=== PATIENT | male | born 1950 | race Caucasian/White ===

== ENCOUNTER 2019-04-06 09:36 | Inpatient (IN) ==
[2019-04-06] MEDS ORDERED: SODIUM CHLORIDE 0.9% 1000ML 1,000 ML IV SCH (10:00)
[2019-04-06 10:24] LABS: Basophils # (auto) 0.02 K/uL (0-0.2); Basophils % (auto) 0.1 %; Eosinophils # (auto) 0.01 K/uL (0-0.5); Eosinophils % (auto) 0.1 %; Hematocrit (blood only) 35.5 % (42-52); Hemoglobin 11.1 g/dL (14.0-18.0); Immature Granulocytes # (auto) 0.06 K/uL (0.00-0.02); Immature Granulocytes % (auto) 0.4 %; Lymphocytes # (auto) 1.03 K/uL (1.2-3.4); Lymphocytes % (auto) 6.3 %; Mean Corpuscular Hemoglobin 25.5 pg (25-34); Mean Corpuscular Hgb Conc 31.3 g/dL (32-36); Mean Corpuscular Volume 81.4 fL (80-100); Mean Platelet Volume 8.5 fL (7.4-10.4); Monocytes # (auto) 1.16 K/uL (0.11-0.59); Monocytes % (auto) 7.1 %; Neutrophils # (auto) 14.01 K/uL (1.4-6.5); Platelet Count 313 K/uL (130-400); RDW Coefficient of Variation 16.3 % (11.5-14.5); RDW Standard Deviation 47.8 fL (36.4-46.3); Red Blood Count 4.36 M/uL (4.7-6.1); White Blood Count 16.29 K/uL (4.8-10.8)
[2019-04-06 10:33] LABS: Partial Thromboplastin Ratio 1.1; Partial Thromboplastin Time 29.8 Seconds (21.0-31.0); Prothrombin Time 10.6 Seconds (9.0-12.0)
[2019-04-06 10:46] LABS: Albumin Level 2.3 gm/dl (3.4-5.0); BUN Creatinine Ratio 20.2 (10-20); Calcium 8.5 mg/dl (8.5-10.1); Est GFR (Non-African American) 62.2; Potassium 4.5 mmol/L (3.5-5.1)
[2019-04-06 10:49] LABS: Albumin Globulin Ratio 0.4 (0.9-2); Bilirubin,Total 0.7 mg/dl (0.2-1); Globulin 6.2 gm/dl (2.5-4.0); Total Protein 8.5 gm/dl (6.4-8.2)
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
[2019-04-06] MEDS ORDERED: ONDANSETRON INJ 2 MG/ML 2 ML VIAL IV STA (11:21)
[2019-04-06] MEDS ORDERED: MoRPHine SULFATE 4 MG/ML 1 ML CARP\\VIAL IV STA (11:21)
--- NOTE | 2019-04-06 11:22 | CT Scan Report ---
CT femur LT wo con CT DOSE: 1438.97 mGy.cm CLINICAL HISTORY: Left thigh swelling. TECHNIQUE: Helical images were acquired in the transverse plane. Sagittal and coronal reformatted aakash ges were acquired. A dose lowering technique was utilized adhering to the principles of ALARA. COMPARISON STUDY: None. FINDINGS: There is an old fracture deformity of the left iliac bone. There is a left hip joint effusion. Osteoarthritic changes are present within the left hip. There are small foci of heterotopic ossification. There are no acute fractures. No bony destructive changes ar e visualized. There is diffuse soft tissue edema of the thigh. There is an old fracture deformity of the distal femur with intercondylar extension. 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 There is chron ic periostitis involving the fracture fragment and distal femoral shaft likely secondary to nonunion. There is extensive heterotopic ossification within the lateral soft tissues of the distal thigh. IMPRESSION: 1. Old fracture deformity of the iliac bone 2. Arthritic changes in the left hip. Left hip joint effusion 3. 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 4. Areas of heterotopic ossification within the distal thigh. 5. Diffuse subcutaneous edema of the left thigh most pronounced laterally Electronically signed by: Kwasi Alfaro M.D. 04/06/2019 11:21 AM
--- NOTE | 2019-04-06 11:27 | CT Scan Report ---
CT abd pelvis wo con CT DOSE: HISTORY: Flank pain right flank pain TECHNIQUE: Multiaxial CT images of the abdomen and pelvis were performed without contrast. A dose lo wering technique was utilized adhering to the principles of ALARA. COMPARISON STUDY: None. FINDINGS: Minimal dependent basilar atelectasis. Liver spleen and pancreas appear uniform. Left kidne y and shows no evidence for hydronephrosis or nephrocalcinosis. Right kidney is enlarged and contains several cysts. An upper pole right renal cyst measures 9 cm. Th ere is a peripherally calcified 2 cm nodules/cysts midpole right kidney. The substance of the mid and lower aspect of the right kidney appears lobular and somewhat enlarged. There is a 6 cm exophytic lower pole cyst. There is a lower pole cyst possibly with a thickened wall measuring 3 cm. There is mild degree of perinephric fat stranding as well as periureteral fat stranding. Significance is unclear pelvis potentially relates to either repeat a recently passed calculus versus an inflamma tory process of the right urinary tract. The configuration of the right kidney is atypical and warrants multiphasic CT evaluation. There are several small gallstones in the region of the fundal aspect of the gallbladder. Abdominal aorta shows atherosclerotic change and ectasia. Evaluation of the bony structures demonstra kiko an old healed fracture versus bony exostosis anterior aspect left iliac wing extending to the ant erior superior acetabular margin. Similar but less prominent findings are identified on the right. There is to be a small left hip joint effusion. There is a minimal right hip joint effusion. IMPRESSION: 1. Multicystic right kidney with evidence for cortical lobulation and internal substance heterogeneit y primarily of the mid and lower pole. 2. A multiphasic CT evaluation of the kidneys and abdomen is suggested to exclude a significant space -occupying lesion. 3. Periureteral infiltrative change suggesting the possibility of either recently passed calculus alvaro morro an inflammatory process of the urinary tract. 4. Several gallstones. 5. Degenerative changes in the hips bilaterally with evidence for left and to a lesser extent right h ip joint effusions possibly a degenerative basis The above report was generated using voice recognition software. It may contain grammatical, syntax or spelling errors. Electronically signed by: Tone Rachel M.D. 04/06/2019 11:26 AM
[2019-04-06 11:59] LABS: Appearance Urine Cloudy (Clear); Bacteria Urine Automated Negative (Negative); Bilirubin Urine Negative (Negative); Blood Urine Trace (Negative); Color Urine Dark Yellow; Epithelial Cell Urine Auto >30 /lpf (0-5); Glucose Urine UA Negative (Negative); Ketones Urine 1+ (Negative); Leukocyte Esterase Urine 2+ (Negative); Nitrite Urine Negative (Negative); Protein Urine 1+ (Negative); RBC Urine Automated 0-4 /hpf (0-4); Specific Gravity Urine 1.019 (1.000-1.030); Urobilinogen Urine Negative (Negative); WBC Urine Automated >30 /hpf (0-5)
[2019-04-06] MEDS ORDERED: cefTRIAXone SODIUM 2,000 MG/70 ML BAG IV STA (12:22)
[2019-04-06] MEDS ORDERED: ONDANSETRON INJ 2 MG/ML 2 ML VIAL IV PRN (14:30)
[2019-04-06] MEDS ORDERED: MAGNESIUM HYDROXIDE SUSP 30 ML UDC PO PRN (14:30)
[2019-04-06] MEDS ORDERED: POLYETHYLENE (MIRALAX) 17 GM PACK PO PRN (14:30)
[2019-04-06] MEDS ORDERED: ZOLPIDEM TARTRATE 5 MG TAB PO PRN (14:30)
[2019-04-06] MEDS ORDERED: MoRPHine SULFATE 2 MG/ML CARP IV PRN (14:30)
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
[2019-04-06] MEDS: SODIUM CHLORIDE 0.9% 1000ML 1,000 ML IV SCH (18:36)
[2019-04-07] MEDS: OXYCODONE/ACETAMINOPHEN 5mg/325mg TAB PO PRN ×2 (07:50→21:34)
[2019-04-07] MEDS: LACTOBACILLUS ACIDOPHILUS (FLORANEX) TAB PO SCH (07:50)
[2019-04-07] MEDS: ASCORBIC ACID 500 MG TAB PO SCH (07:50)
[2019-04-07] MEDS ORDERED: LACTATED RINGER'S 1,000 ML IV ONE (08:22)
[2019-04-07 08:36] LABS: Basophils # (auto) 0.03 K/uL (0-0.2); Basophils % (auto) 0.2 %; Eosinophils # (auto) 0.08 K/uL (0-0.5); Eosinophils % (auto) 0.6 %; Hematocrit (blood only) 33.9 % (42-52); Hemoglobin 10.6 g/dL (14.0-18.0); Immature Granulocytes # (auto) 0.07 K/uL (0.00-0.02); Immature Granulocytes % (auto) 0.6 %; Lymphocytes # (auto) 0.84 K/uL (1.2-3.4); Lymphocytes % (auto) 6.8 %; Mean Corpuscular Hemoglobin 25.5 pg (25-34); Mean Corpuscular Hgb Conc 31.3 g/dL (32-36); Mean Corpuscular Volume 81.7 fL (80-100); Mean Platelet Volume 8.8 fL (7.4-10.4); Monocytes # (auto) 1.27 K/uL (0.11-0.59); Monocytes % (auto) 10.2 %; Neutrophils # (auto) 10.12 K/uL (1.4-6.5); Neutrophils % (auto) 81.6 %; Platelet Count 277 K/uL (130-400); RDW Coefficient of Variation 16.9 % (11.5-14.5); RDW Standard Deviation 49.6 fL (36.4-46.3); Red Blood Count 4.15 M/uL (4.7-6.1); White Blood Count 12.41 K/uL (4.8-10.8)
[2019-04-07] MEDS ORDERED: CYANOCOBALAMIN COBAMAMIDE SL SCH (09:00)
[2019-04-07 09:02] LABS: BUN Creatinine Ratio 19.8 (10-20); Creatinine Clr Calc Pharmacy 69.5 ml/min; Est GFR (African American) 69.9; Est GFR (Non-African American) 60.3; Magnesium 1.9 mg/dl (1.8-2.4); Potassium 4.1 mmol/L (3.5-5.1)
[2019-04-07 09:05] LABS: Albumin Globulin Ratio 0.4 (0.9-2); Bilirubin,Total 0.7 mg/dl (0.2-1); Globulin 5.5 gm/dl (2.5-4.0); Total Protein 7.5 gm/dl (6.4-8.2)
[2019-04-07] MEDS ORDERED: DiphenhydrAMINE HCL 50 MG/ML VIAL IV STA (10:35)
[2019-04-07] MEDS: SODIUM CHLORIDE 0.9% 1000ML 1,000 ML IV SCH (10:35)
[2019-04-07] MEDS ORDERED: ONDANSETRON INJ 2 MG/ML 2 ML VIAL IV STA (10:35)
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
[2019-04-07] MEDS ORDERED: IOVERSOL 100ml IV PRN (12:07)
--- NOTE | 2019-04-07 12:46 | CT Scan Report ---
CT OF THE ABDOMEN AND PELVIS WITH AND WITHOUT CONTRAST RENAL MASS PROTOCOL CLINICAL HISTORY: Possible right renal mass. COMPARISON STUDY: None. TECHNIQUE: Unenhanced, nephrographic and delayed phase imaging of the abdomen and pelvis was performe d. Intravenous injection of 95 cc of Optiray 320 IV was uneventful. Automated exposure control was u tilized for the study. A dose lowering technique was utilized adhering to the principles of ALARA. CT DOSE: 2234.26 mGycm FINDINGS: Imaged portions of the lower lungs demonstrate possible pulmonary emboli within segmental b ranches of the right lower lobe. No hepatic lesions are present. The spleen, left adrenal gland and p ancreas are unremarkable. A 1.6 cm right adrenal nodule measures low attenuation. This favors an colin ileana although is indeterminate. There are gallstones within the gallbladder without evidence for acute cholecystitis. Note is made of an infiltrative enhancing mass replacing the mid pole of the right kidney. This measu res approximately 9.7 x 8.2 cm. There is extensive invasion into the renal veins and inferior vena ca va. IVC thrombus extends to the level of the hepatic veins superiorly and likely extends into the inf rarenal IVC as well. No extension above the diaphragm is noted. In addition, there is thrombus extens ion into the mid to distal left renal vein. Mild left renal atrophy is noted. Numerous right renal cy sts are noted. Several these have calcifications. There is moderate right perinephric infiltration. A borderline enlarged maninder hepatis lymph node on image 127 measures 1.1 cm in short axis diameter. Ri ght-sided urothelial thickening is noted. Note is made of bilobed infrarenal abdominal aortic aneurysm that measure up to 3.4 cm. There is no e vidence for rupture. There is no evidence for a bowel obstruction. Rodriguez balloon is present within th e bladder which is collapsed. Muscular atrophy is noted. Old traumatic deformity is within the pelvis and hips are noted. There is avascular necrosis of the left femoral head. Pelvic infiltration is not ed. No suspicious renal lesions are present. Possible thrombus within the bilateral femoral veins is noted. Borderline enlarged left inguinal lymph nodes are likely reactive. IMPRESSION: 1. Large infiltrative mass replacing the midpole of the right kidney, measuring approximately 9.7 x 8 .2 cm. Extensive venous invasion into the right renal vein, mid to distal left renal vein and IVC to the level of the hepatic veins. Possible pulmonary emboli within the right lower lobe. A PE protocol CT could be obtained. Venous invasion favors a renal cell carcinoma however a transitional cell carci noma could appear similar given the infiltrative appearance and urothelial thickening. 2. Right perinephric infiltration extending into the pelvis, likely due to venous involvement. Border line-enlarged maninder hepatis lymph node. 1.6 cm low-attenuation right adrenal nodule which is indeterm inate but favors an adenoma. 3. Bilobed infrarenal abdominal aortic aneurysm measuring 3.4 cm. 4. Thrombus versus mixing artifact within the bilateral femoral veins. Bilateral lower extremity veno us Doppler ultrasound is recommended. 5. Old posttraumatic findings. Avascular necrosis of the left femoral head. 6. Cholelithiasis. Electronically signed by: Anjum De Luna M.D. 04/07/2019 12:44 PM
[2019-04-07] MEDS ORDERED: cefTRIAXone SODIUM 2,000 MG in DEXTROSE 5% 50 ML IV SCH (13:00)
--- NOTE | 2019-04-07 16:44 | Hospitalist Progress Note ---
Date of Service April 07, 2019 Assessment & Plan (1) Acute pyelonephritis: Unclear diagnosis since right flank pain resolved from what sounds like passing a stone however no other renal stones on CT CT concerning for periureteral infiltrative change ?infective. Associated WBC would suggest infection related. Gram negative bacilli on urine culture likely colonized. No perinephric stranding on CTs. Will treat with ceftriaxone for at least 7 days given difficult to assess pyelonephritis given renal mass involvement. (2) Bilateral lower extremity edema: Ultrasound venous Doppler for DVT given concern for pulmonary embolism on CT abdomen pelvis and a possible thrombus in bilateral femoral veins. Will defer CT for PE to reduce risk of contrast-induced nephropathy. (3) Renal mass: Patient reports prior history of right renal cyst however current CT abdomen pelvis with and without contrast is very concerning for renal cell carcinoma. Will attempt to obtain prior imaging from [facility] or [facility] for comparison Appreciate urology recommendations (4) Elevated LFTs: Unclear definitive etiology. Elevation in AST fits with alcohol use although he denies this. Concerning CT scan for hepatic congestion given thrombus and vein infiltration of renal mass. Continue to trend. (5) Paraplegia: Continue supportive and conservative management (6) Decubitus ulcer, stage IV: 3 decubitus ulcer ranging from stage II-IV and his lower back and sacral area Multiple large decubitus ulcers also stage III-IV in both feet and calf muscle No surrounding cellulitis. Gram negative bacilli on all cultures. Local wound management only required. 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 No acute management. Careful movement of limbs. Subjective Patient appears much improved since admission. Revisited history with patient and his . He reports sudden onset nausea, vomiting and right flank pain which started on . Pain severity 10/10, unable to get comfortable. He reports the pain was much improved by the time he came to the ER. He has been eating and drinking today without nausea or vomiting. Denies any fever. Uses continuous intermittent catheterization due to neurogenic bladder but reports no change in his urine. Review of Systems Review of Systems: All systems reviewed & are unremarkable except as noted in HPI & below Physical Exam Constitutional: WD/WN, vitals as above Eyes: normal visual angel by confrontation; normal pupil size ENMT: external ear and nose normal, oropharynx normal Respiratory: normal respiratory effort, lungs clear to auscultation Cardiovascular: Rate/Rhythm: regular rate and regular rhythm Heart Sounds: normal S1 and normal S2; no murmur Extremities: + edema (2+ b/l) Gastrointestinal (Abdomen): normal bowel sounds, soft, nontender, no hepatosplenomegaly Skin: Multiple wounds on right foot, sacrum, left knee and left leg without surrounding cellulitis Neurologic: + focal motor deficit (paralyzed from waist down with no sensation or movement) and awake Psychiatric: A+Ox3, euthymic affect Results & Data Vital Signs (Past 12 Hours) Vital Signs Temp Pulse Resp BP Pulse Ox 04/07/19 15:43 97.7 F 74 18 94/57 L 95 04/07/19 10:48 97.7 F 80 19 99/64 L 96 04/07/19 07:12 97.9 F 99 H 19 93/63 L 98 PG Care Time/CCT Total # of Minutes Spent Total Time Spent with Patient: Total time spent is greater than 50% in coordination of care (as documented) at patient's floor/unit and/or counseling patient:
--- NOTE | 2019-04-07 19:10 | Ultrasound Report ---
BILATERAL LOWER EXTREMITY VENOUS DOPPLER HISTORY: Abnormal CT. Possible femoral vein thrombosis. COMPARISON STUDY: Abdomen and pelvis CT 04/07/2019. FINDINGS: There is occlusive thrombus within the right common femoral vein extending to the mid popli teal vein. There is also nonocclusive thrombus within the left common femoral vein to the proximal le ft superficial femoral vein. The right calf veins are patent. The left calf veins are also likely pat ent. Left popliteal vein is patent. IMPRESSION: Bilateral lower extremity DVT as described above. Electronically signed by: Jose Faustin M.D. 04/07/2019 7:09 PM
[2019-04-07] MEDS: ENOXAPARIN 100 MG/1ML SYR SQ SCH (20:29)
[2019-04-08] MEDS: SODIUM CHLORIDE 0.9% 1000ML 1,000 ML IV SCH (02:30)
[2019-04-08] MEDS ORDERED: LACTATED RINGER'S 1,000 ML IV ONE (07:34)
[2019-04-08] MEDS: ENOXAPARIN 100 MG/1ML SYR SQ SCH ×2 (08:07→19:48)
[2019-04-08] MEDS: ASCORBIC ACID 500 MG TAB PO SCH (08:07)
[2019-04-08] MEDS: LACTOBACILLUS ACIDOPHILUS (FLORANEX) TAB PO SCH (08:07)
[2019-04-08] MEDS: OXYCODONE/ACETAMINOPHEN 5mg/325mg TAB PO PRN ×2 (08:08→21:26)
[2019-04-08 08:11] LABS: Basophils # (auto) 0.04 K/uL (0-0.2); Basophils % (auto) 0.3 %; Eosinophils # (auto) 0.12 K/uL (0-0.5); Eosinophils % (auto) 0.8 %; Hematocrit (blood only) 33.6 % (42-52); Hemoglobin 10.3 g/dL (14.0-18.0); Immature Granulocytes # (auto) 0.08 K/uL (0.00-0.02); Immature Granulocytes % (auto) 0.5 %; Lymphocytes # (auto) 1.06 K/uL (1.2-3.4); Lymphocytes % (auto) 7.1 %; Mean Corpuscular Hemoglobin 25.6 pg (25-34); Mean Corpuscular Hgb Conc 30.7 g/dL (32-36); Mean Corpuscular Volume 83.6 fL (80-100); Mean Platelet Volume 8.6 fL (7.4-10.4); Monocytes # (auto) 1.48 K/uL (0.11-0.59); Monocytes % (auto) 9.9 %; Neutrophils # (auto) 12.22 K/uL (1.4-6.5); Neutrophils % (auto) 81.4 %; Platelet Count 269 K/uL (130-400); RDW Coefficient of Variation 16.9 % (11.5-14.5); RDW Standard Deviation 51.2 fL (36.4-46.3); Red Blood Count 4.02 M/uL (4.7-6.1)
[2019-04-08 08:45] LABS: Albumin Level 1.8 gm/dl (3.4-5.0); BUN Creatinine Ratio 22.6 (10-20); Calcium 7.7 mg/dl (8.5-10.1); Creatinine Clr Calc Pharmacy 68.4 ml/min; Est GFR (African American) 68.5; Est GFR (Non-African American) 59.1; Potassium 4.1 mmol/L (3.5-5.1)
[2019-04-08 08:48] LABS: Albumin Globulin Ratio 0.3 (0.9-2); Bilirubin,Total 0.6 mg/dl (0.2-1); Globulin 5.3 gm/dl (2.5-4.0); Total Protein 7.1 gm/dl (6.4-8.2)
[2019-04-08] MEDS ORDERED: OPTIRAY 320 125ml IV PRN (10:51)
--- NOTE | 2019-04-08 11:08 | CT Scan Report ---
CT angio chest PE protocol CLINICAL HISTORY: 68 years-old Male presenting with RCC, evaluate for metastasis, extensive DVT, conc urvashi for pulmonary embolus on CT of the abdomen and pelvis, CT chest for complete evaluation. TECHNIQUE: Multidetector CT angiography of the chest was performed after administration of intravenou s contrast. 3-D volumetric and/or maximum intensity projection (MIP) images were subsequently reconst ructed for review. IV contrast: 120 mL of Optiray 320. One or more dose lowering techniques were used consistent with the principles of ALARA (as low as reasonably achievable), including automatic expos ure control, mA or kV adjustment to individual patient size, and/or use of iterative reconstruction. COMPARISON: Bilateral lower extremity Doppler ultrasound from 04/07/[address] of the abdomen and pel vis from 04/07/2019. CT DOSE (mGy.cm): The estimated cumulative dose is 831.98 mGy.cm. FINDINGS: Management Architect topogram: Unremarkable. Pulmonary vasculature: The study is suboptimal for the assessment of the pulmonary vascular tree secondary to respiratory mo tion artifact. Segmental and subsegmental pulmonary emboli in the right lower lobe. The left lung isatu ears uninvolved. Main pulmonary artery is not enlarged. No flattening of the interventricular septum. No intracardiac filling defect. No reflux of contrast into the hepatic veins. Infrahepatic IVC is ex panded compatible with known thrombus. Intrahepatic portion patent. Remaining chest: Soft tissues: Normal thyroid and thoracic inlet. No axillary, supraclavicular, mediastinal, or hilar lymphadenopathy. Atherosclerosis of the aorta. Multichamber enlargement of the heart. Coronary artery calcification. No pericardial or pleural effusion. Gallstones noted. Right renal cyst. 14 mm right a drenal nodule again noted. Lungs and airways: No pneumothorax. Central airways patent. Pulmonary arteries mildly enlarged relati ve to adjacent bronchi. Prominent mosaic attenuation. Minimal interlobular septal thickening may be p resent. Respiratory motion artifact degrades evaluation of lung parenchyma. Bibasilar dependent gaspar es likely atelectasis. No other superimposed opacity. Musculoskeletal: Degenerative changes of the spine. IMPRESSION: 1. Acute pulmonary emboli in segmental and subsegmental pulmonary arteries of the right lower lobe a s seen on CT of the abdomen and pelvis performed yesterday. No CT evidence of right heart strain. Thi s is bland thrombus. 2. No convincing evidence of intrathoracic metastatic disease allowing for image quality. No lymphad enopathy. 3. Mosaic attenuation suggests small airways disease though can also have a vascular etiology. No fo jamey infiltrate to suggest pneumonia or pulmonary infarct. 4. Expanded infrahepatic IVC compatible with known thrombus. 5. Cardiomegaly with volume overload and mild congestive change. No any pulmonary edema. 6. Right adrenal nodule most likely adenoma. 7. Cholelithiasis. Electronically signed by: Emmanuel Galeano M.D. 04/08/2019 11:05 AM
--- NOTE | 2019-04-08 12:18 | Urology Progress Note ---
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 Typical management reviewed - would be surgical with thrombectomy. Seen the extent of thrombus, tertiary facility would be [facility] (possible need for mobilization of hepatic IVC and / or availability of cardiothoracic services). Patient notes he is typically seen at [facility] and would like to maintain care there - this is nonacute, will arrange for appropriate referral on discharge from his acute issues. Alternate management would be consideration of pre-surgical chemotherapy for tumor shrinkage and subsequent resection - this would be less ideal, but will arrange for at least a discussion to take place with oncology service. With a high risk tumor as seems to be present, the consideration of postop chemotherapy would also be present. Patient vocalizes understanding of discussion, questions answered. Continue management per primary service of other active medical issues. Subjective: 68 yo male with a R renal lesion s/p CT scan with contrast done yesterday per orders. Care d/w patient and nursing - remains inpatient due to infection / BP issues. CT images personally reviewed, report noted - R renal mass, central, c/w RCC with thrombus to IVC, reaches ~ inferior edge of liver. Per nursing CT chest done this AM - + PE, no mets. Patient denies new c/o, garcia remains in place with rodríguez urine. Review of Systems Constitutional: no fever and no chills Eyes: no diplopia Ear, Nose, Mouth, Throat: no ear trauma Respiratory: + problem reported (worsening breathing as noted) Cardiovascular: no chest pain Genitourinary: + as per Subjective / HPI, + difficulty urinating and + hematuria Musculoskeletal: no back pain Integumentary: no acne and no boil Neurologic: no paralysis Psychiatric: no hopelessness Endocrine: + fatigue Hematologic / Lymphatic: no lymphadenopathy Allergy / Immunological: no tongue swelling Physical Exam Constitutional: well developed and well nourished; no acute distress Eyes: eyes not dysmorphic ENMT: Ears: no external ear abnormality Neck: trachea midline; no anterior neck swelling Respiratory: does not use accessory muscles Cardiovascular: Vessels: radial pulses present Gastrointestinal (Abdomen): Inspection/Auscultation: abdomen not distended Percussion/Palpation: abdomen soft; abdomen nontender Musculoskeletal: Head/Neck/Chest: normocephalic and neck supple Skin: normal turgor Neurologic: awake; not obtunded paraplegia Psychiatric: Orientation: oriented x 3 Lymphatic: no lymphadenopathy Results & Data Vital Signs (Past 12 Hours) Vital Signs Temp Pulse Resp BP BP Pulse Ox 04/08/19 08:00 78 18 95 04/08/19 07:19 36.4 C L 69 16 118/75 100 04/08/19 03:55 36.4 C L 77 17 109/71 98 04/07/19 23:53 36.4 C L 73 18 116/77 98 Laboratory Results Laboratory Results - last 48 hr 04/06/19 04/07/19 04/07/19 18:55 11:38 14:00 WBC RBC Hgb Hct MCV MCH MCHC RDW Std Deviation RDW Coeff of Emely Plt Count MPV Sodium Potassium Chloride Carbon Dioxide Anion Gap BUN Creatinine Est Cr Clr Drug Dosing Est GFR ( Amer) Est GFR (Non-Af Amer) BUN/Creatinine Ratio Glucose POC Glucose 95 Calcium Troponin I < 0.015 Urine Color Yellow Urine Appearance Clear Urine pH 6.0 Ur Specific [place] 1.018 Urine Protein Negative Urine Glucose (UA) Negative Urine Ketones Negative Urine Blood Trace H Urine Nitrite Negative Urine Bilirubin Negative Urine Urobilinogen Negative Ur Leukocyte Esterase 2+ H Urine WBC (Auto) >30 H Urine RBC (Auto) 0-4 U Hyaline Cast (Auto) 1-5 U Epithel Cells (Auto) 10-20 H Urine Bacteria (Auto) 1+ H Urine Yeast Not Reportable 04/08/19 04/08/19 05:56 05:56 WBC 8.63 RBC 3.85 L Hgb 12.5 L Hct 38.2 L MCV 99.2 MCH 32.5 MCHC 32.7 RDW Std Deviation 51.7 H RDW Coeff of Emely 14.4 Plt Count 166 MPV 9.2 Sodium 133 L Potassium 4.5 Chloride 94 L Carbon Dioxide 37 H Anion Gap 2.0 L BUN 22 H Creatinine 0.93 Est Cr Clr Drug Dosing 75.6 Est GFR ( Amer) 98.8 Est GFR (Non-Af Amer) 85.2 BUN/Creatinine Ratio 23.9 H Glucose 112 H POC Glucose Calcium 8.6 Troponin I Urine Color Urine Appearance Urine pH Ur Specific [place] Urine Protein Urine Glucose (UA) Urine Ketones Urine Blood Urine Nitrite Urine Bilirubin Urine Urobilinogen Ur Leukocyte Esterase Urine WBC (Auto) Urine RBC (Auto) U Hyaline Cast (Auto) U Epithel Cells (Auto) Urine Bacteria (Auto) Urine Yeast Diagnostic Findings IMPRESSION: 1. No renal or ureteral stones. No hydronephrosis. 2. No suspicious filling defects seen within the opacified bilateral renal col lecting systems or ureters. 3. Small linear filling defects layering within the bladder posteriorly and within the 1.5 cm left posterior bladder diverticulum. The appearance favors small areas of blood products/clot given the patient's history of hematuria. However, this should be confirmed with follow-up cystoscopy. 4. 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 Follow-up nonemergent vascular surgery consultation recommended. 5. Moderate size left inguinal hernia containing a segment of the proximal sigmoid colon. No evidence for bowel obstruction. 6. Normal appendix. 7. Colonic diverticulosis. 8. Small focal area of tree-in-bud nodular opacities within the left lower lobe which favors a mild infectious bronchiolitis possibly secondary to aspiration.. 9. Additional findings as described above. Results & Data Vital Signs (Past 12 Hours) Vital Signs Temp Pulse Resp BP BP Pulse Ox 04/08/19 10:52 36.6 C 78 19 98/61 L 95 04/08/19 07:50 36.8 C 83 19 98/62 L 97 04/08/19 02:53 36.6 C 86 16 86/65 L 98 PG Care Time/CCT Total # of Minutes Spent Total Time Spent with Patient: Total time spent is greater than 50% in coordina tion of care (as documented) at patient's floor/unit and/or counseling patient:
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
[2019-04-08] MEDS: ACETAMINOPHEN 325 MG TAB PO PRN (13:42)
--- NOTE | 2019-04-08 17:42 | Hospitalist Progress Note ---
Date of Service April 08, 2019 Assessment & Plan (1) Pulmonary embolus: Acute pulmonary emboli in segmental and subsegmental pulmonary arteries of the right lower lobe, no CT evidence of right heart strain. Patient asymptomatic with no chest pain or shortness of breath. Continue Lovenox treatment dose, causing increased bleeding from sacral and leg ulcers in addition to hematuria. Will keep overnight to ensure hemodynamic and hemoglobin stability. Plan on discharge tomorrow, as long as he is stable. (2) DVT (deep venous thrombosis): Bilateral extensive thrombus due to IVC invasion of tumor from RCC and immobility. Continue Lovenox 100 mg twice daily. 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 Patient is okay to be discharged from this perspective and will follow up with referral to tertiary care center for nephrectomy and IVC thrombus. F/U Dr Hwang in office on d/c. (4) Elevated LFTs: Hepatic congestion from IVC thrombus. (5) Acute pyelonephritis: Ruled out. Discussed with Dr. Lou. Given clear etiology of his right flank pain with b leed from renal cell carcinoma agree with holding further antibiotics. (6) Paraplegia: Continue supportive and conservative management (7) Decubitus ulcer, stage IV: 3 decubitus ulcer ranging from stage II-IV and his lower back and sacral area Multiple large decubitus ulcers also stage III-IV in both feet and calf muscle No surrounding cellulitis. Gram negative bacilli on all cultures. Wound consult tomorrow. 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 No acute management. Careful movement of limbs. (10) Discharge planning issues: Code - full Disposition -plan on discharge home tomorrow if hemodynamically and hemoglobin stable. Follow-up with oncology and urology to refer to tertiary care center. Discharge home on Lovenox. Subjective Reports no chest pain, shortness of breath (diagnosed with PEs), recurrent flank pain or dizziness. Bleeding into catheter bag since starting on lovenox. Ulcers appear to bleeding more in addition. No melena or rectal bleeding. Review of Systems Review of Systems: All systems reviewed & are unremarkable except as noted in HPI & below Physical Exam Constitutional: WD/WN, vitals as above (low normal BP) not lethargic Eyes: normal visual angel by confrontation; normal pupil size ENMT: external ear and nose normal, oropharynx normal Respiratory: normal respiratory effort, lungs clear to auscultation Cardiovascular: Rate/Rhythm: regular rate and regular rhythm Heart Sounds: normal S1 and normal S2; no murmur Extremities: + edema (2+ b/l) Gastrointestinal (Abdomen): normal bowel sounds, soft, nontender, no hepatosplenomegaly Neurologic: + focal motor deficit (paralyzed from waist down with no sensation or movement) and awake Psychiatric: A+Ox3, euthymic affect Results & Data Vital Signs (Past 12 Hours) Vital Signs Temp Pulse Pulse Resp BP Pulse Ox 04/08/19 15:00 82 04/08/19 14:30 84 04/08/19 10:52 97.9 F 78 19 98/61 L 95 04/08/19 07:50 98.2 F 83 19 98/62 L 97 PG Care Time/CCT Total # of Minutes Spent Total Time Spent with Patient: Total time spent is greater than 50% in coordination of care (as documented) at patient's floor/unit and/or counseling patient: (1) Pulmonary embolus Acute cor pulmonale presence: without acute cor pulmonale Chronicity: acute Pulmonary embolism type: other Qualified Code(s): I26.99 - Other pulmonary embolism without acute cor pulmonale
[2019-04-09 02:05] LABS: Basophils # (auto) 0.03 K/uL (0-0.2); Basophils % (auto) 0.2 %; Eosinophils # (auto) 0.13 K/uL (0-0.5); Eosinophils % (auto) 0.9 %; Hematocrit (blood only) 29.4 % (42-52); Immature Granulocytes # (auto) 0.07 K/uL (0.00-0.02); Immature Granulocytes % (auto) 0.5 %; Lymphocytes # (auto) 1.15 K/uL (1.2-3.4); Lymphocytes % (auto) 7.9 %; Mean Corpuscular Hemoglobin 25.1 pg (25-34); Mean Corpuscular Volume 82.1 fL (80-100); Mean Platelet Volume 8.8 fL (7.4-10.4); Monocytes # (auto) 1.44 K/uL (0.11-0.59); Neutrophils # (auto) 11.65 K/uL (1.4-6.5); Neutrophils % (auto) 80.5 %; Platelet Count 277 K/uL (130-400); RDW Coefficient of Variation 16.6 % (11.5-14.5); RDW Standard Deviation 49.5 fL (36.4-46.3); Red Blood Count 3.58 M/uL (4.7-6.1); White Blood Count 14.47 K/uL (4.8-10.8)
[2019-04-09 02:13] LABS: Mean Corpuscular Hgb Conc 30.6 g/dL (32-36)
[2019-04-09 06:07] LABS: Basophils # (auto) 0.04 K/uL (0-0.2); Basophils % (auto) 0.3 %; Eosinophils # (auto) 0.15 K/uL (0-0.5); Eosinophils % (auto) 1.1 %; Hematocrit (blood only) 30.1 % (42-52); Hemoglobin 8.9 g/dL (14.0-18.0); Immature Granulocytes # (auto) 0.08 K/uL (0.00-0.02); Immature Granulocytes % (auto) 0.6 %; Lymphocytes # (auto) 1.13 K/uL (1.2-3.4); Lymphocytes % (auto) 7.9 %; Mean Corpuscular Hemoglobin 24.7 pg (25-34); Mean Corpuscular Hgb Conc 29.6 g/dL (32-36); Mean Corpuscular Volume 83.4 fL (80-100); Mean Platelet Volume 8.6 fL (7.4-10.4); Monocytes # (auto) 1.62 K/uL (0.11-0.59); Monocytes % (auto) 11.4 %; Neutrophils # (auto) 11.24 K/uL (1.4-6.5); Neutrophils % (auto) 78.7 %; Platelet Count 275 K/uL (130-400); RDW Coefficient of Variation 16.8 % (11.5-14.5); RDW Standard Deviation 50.4 fL (36.4-46.3); Red Blood Count 3.61 M/uL (4.7-6.1); White Blood Count 14.26 K/uL (4.8-10.8)
[2019-04-09 06:39] LABS: Albumin Level 1.6 gm/dl (3.4-5.0); BUN Creatinine Ratio 23.1 (10-20); Calcium 7.3 mg/dl (8.5-10.1); Creatinine Clr Calc Pharmacy 74.4 ml/min; Est GFR (African American) 75.9; Est GFR (Non-African American) 65.5; Potassium 4.2 mmol/L (3.5-5.1)
[2019-04-09 06:42] LABS: Albumin Globulin Ratio 0.3 (0.9-2); Bilirubin,Total 0.4 mg/dl (0.2-1); Globulin 4.8 gm/dl (2.5-4.0); Total Protein 6.4 gm/dl (6.4-8.2)
[2019-04-09] MEDS: ENOXAPARIN 100 MG/1ML SYR SQ SCH ×2 (08:04→19:55)
[2019-04-09] MEDS: ASCORBIC ACID 500 MG TAB PO SCH (08:04)
[2019-04-09] MEDS: LACTOBACILLUS ACIDOPHILUS (FLORANEX) TAB PO SCH (08:05)
[2019-04-09] MEDS: ACETAMINOPHEN 325 MG TAB PO PRN (11:58)
[2019-04-09] MEDS: ALUMINUM/MAGNESIUM SUSP 30 ML UDC PO PRN (11:58)
[2019-04-09 14:32] LABS: Appearance Urine Cloudy (Clear); Blood Urine 3+ (Negative); Color Urine Amber; Glucose Urine UA Negative (Negative); Ketones Urine Trace (Negative); Leukocyte Esterase Urine 1+ (Negative); Nitrite Urine Negative (Negative); Protein Urine 2+ (Negative); Specific Gravity Urine 1.015 (1.000-1.030); Urobilinogen Urine Negative (Negative)
[2019-04-09 14:49] LABS: Bilirubin Urine Negative (Negative); Ictotest Urine Negative (Negative)
[2019-04-09 14:53] LABS: Bacteria Urine 2+ (Negative); Epithelial Cell Urine >30 /lpf (0-5); RBC Urine >30 /hpf (0-4); WBC Urine >30 /hpf (0-5)
[2019-04-09 15:46] LABS: Hematocrit (blood only) 28.4 % (42-52); Hemoglobin 8.8 g/dL (14.0-18.0); White Blood Count 14.6 K/uL (4.8-10.8)
[2019-04-09] MEDS: CEFEPIME 2,000 MG in SYRINGE 7.5 ML IV SCH ×2 (16:37→23:42)
[2019-04-09] MEDS ORDERED: SOD PHOSPHATE/SOD BIPHOSPHATE ENEMA 132 ML BTL PR STA (21:35)
--- NOTE | 2019-04-09 22:02 | Hospitalist Progress Note ---
Date of Service April 09, 2019 Assessment & Plan (1) Pulmonary embolus: Acute pulmonary emboli in segmental and subsegmental pulmonary arteries of the right lower lobe, no CT evidence of right heart strain. Patient asymptomatic with no chest pain or shortness of breath. Continue Lovenox treatment dose, causing increased bleeding from sacral and leg ulcers in addition to hematuria. Patient's hemoglobin did drop today to below 9. Will hold discharge. Will continue to closely monitor his hemoglobin. will continue to monitor cbc and will also check urine. Patient will be seen by [facility] surgeon on Tuesday in the outpatient setting. (2) DVT (deep venous thrombosis): Bilateral extensive thrombus due to IVC invasion of tumor from RCC and immobility. Continue Lovenox 100 mg twice daily. 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 Patient is okay to be discharged from this perspective onc ehemoglobin stabilized and will follow up with referral to tertiary care center for nephrectomy and IVC thrombus. F/U Dr Hwang in office on d/c. (4) Elevated LFTs: Hepatic congestion from IVC thrombus. (5) Acute pyelonephritis: Ruled out. Discussed with Dr. Lou. Given clear etiology of his right flank pain with bleed from renal cell carcinoma agree with holding further antibiotics. (6) Paraplegia: Continue supportive and conservative management (7) Decubitus ulcer, stage IV: 3 decubitus ulcer ranging from stage II-IV and his lower back and sacral area Multiple large decubitus ulcers also stage III-IV in both feet and calf muscle No surrounding cellulitis. Gram negative bacilli on all cultures. will start antibiotics as showing pseudomonas and mssa. Will consult ID. 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 No acute management. Careful movement of limbs. (10) Discharge planning issues: Code - full Follow-up with oncology and urology to refer to tertiary care center. Discharge home on Lovenox. Spent 65 minutes in management of patient. 8:00 to 8:20 13:15 to 13:50 18:00 to 18:10 Subjective of patient was at bedside and she was updated. Had extensive conversation with and patient. Multiple questions were answered, main concern was the next step. Family wants to go directly to [facility] to get kidney removed. Explained that this was being worked on BY NURSE NAVIGATOR as I was in the room. Family is also concerned about the urine being dark colored. Review of Systems Review of Systems: Review of system Constitutional: No fever / no chills / no sweats / no weakness / no fatigue Eyes: no blurring of vision / no eye pain / no discharge / no redness ENT: no hearing loss / no epistaxis /no swallowing problems Respiratory: no cough / no wheezing / no SOB / no hemoptysis Cardiovascular: no Chest pain / no lower extremity edema / no palpitation Abdomen: Positive right flank pain Musculoskeletal: no joint pain / no muscle pain / no joint swelling Genitourinary: Patient has urinary retention as baseline, currently his urine is smelly and cloudy Neurologic: Awake alert oriented, baseline paraplegia Psychiatric: no depression symptoms / no anxiety / no insomnia Endocrine: no excessive thirst / no excessive urination Hematologic: no abnormal bleeding / no bruising / no LN swelling Skin: No rash / no pallor/baseline stage III-IV multiple bilateral lower extremity and decubitus ulcers Physical Exam Physical Exam: Constitutional: WD/WN, vitals as above (low normal BP) not lethargic Eyes: normal visual angel by confrontation; normal pupil size ENMT: external ear and nose normal, oropharynx normal Respiratory: normal respiratory effort, lungs clear to auscultation Cardiovascular: Rate/Rhythm: regular rate and regular rhythm Heart Sounds: normal S1 and normal S2; no murmur Extremities: + edema (2+ b/l) Gastrointestinal (Abdomen): normal bowel sounds, soft, nontender, no hepatosplenomegaly Neurologic: + focal motor deficit (paralyzed from waist down with no sensation or movement) and awake Psychiatric: A+Ox3, euthymic affect Results & Data Vital Signs (Past 12 Hours) Vital Signs Temp Pulse Pulse Resp BP Pulse Ox 04/09/19 15:36 93 H 04/09/19 15:27 37.2 C 95 H 17 91/60 L 95 04/09/19 11:30 36.7 C 91 H 18 104/66 95 PG Care Time/CCT Total # of Minutes Spent Total Time Spent with Patient: Total time spent is greater than 50% in coordination of care (as documented) at patient's floor/unit and/or counseling patient: Prolonged Care Time Prolonged Care Time: Yes Total Prolonged Care Time: 65 specific times specified in A/P (1) Pulmonary embolus Acute cor pulmonale presence: without acute cor pulmonale Chronicity: acute Pulmonary embolism type: other Qualified Code(s): I26.99 - Other pulmonary embolism without acute cor pulmonale
[2019-04-10] MEDS: OXYCODONE/ACETAMINOPHEN 5mg/325mg TAB PO PRN (00:25)
[2019-04-10 06:07] LABS: Basophils # (auto) 0.03 K/uL (0-0.2); Basophils % (auto) 0.3 %; Eosinophils # (auto) 0.29 K/uL (0-0.5); Eosinophils % (auto) 2.5 %; Hemoglobin 8.5 g/dL (14.0-18.0); Immature Granulocytes # (auto) 0.12 K/uL (0.00-0.02); Lymphocytes # (auto) 1.24 K/uL (1.2-3.4); Lymphocytes % (auto) 10.6 %; Mean Corpuscular Hemoglobin 25.4 pg (25-34); Mean Corpuscular Hgb Conc 30.4 g/dL (32-36); Mean Corpuscular Volume 83.6 fL (80-100); Mean Platelet Volume 8.7 fL (7.4-10.4); Monocytes # (auto) 1.24 K/uL (0.11-0.59); Monocytes % (auto) 10.6 %; Neutrophils # (auto) 8.78 K/uL (1.4-6.5); Platelet Count 298 K/uL (130-400); RDW Coefficient of Variation 16.8 % (11.5-14.5); RDW Standard Deviation 50.9 fL (36.4-46.3); Red Blood Count 3.35 M/uL (4.7-6.1)
[2019-04-10 06:42] LABS: Alanine Aminotransferase < 6 U/L (12-78); Albumin Level 1.4 gm/dl (3.4-5.0); Aspartate Aminotransferase 41 U/L (15-37); BUN Creatinine Ratio 28.5 (10-20); Blood Urea Nitrogen 29 mg/dl (7-18); Calcium 7.5 mg/dl (8.5-10.1); Carbon Dioxide 26 mmol/L (21-32); Chloride 105 mmol/L (98-107); Creatinine Clr Calc Pharmacy 82.3 ml/min; Est GFR (African American) 84.9; Est GFR (Non-African American) 73.3; Glucose 87 mg/dl (70-99); Potassium 3.7 mmol/L (3.5-5.1); Sodium 137 mmol/L (136-145)
[2019-04-10 06:45] LABS: Albumin Globulin Ratio 0.3 (0.9-2); Alkaline Phosphatase 106 U/L (45-117); Bilirubin,Total 0.4 mg/dl (0.2-1); Globulin 4.9 gm/dl (2.5-4.0); Total Protein 6.3 gm/dl (6.4-8.2)
[2019-04-10] MEDS: ASCORBIC ACID 500 MG TAB PO SCH (09:03)
[2019-04-10] MEDS: LACTOBACILLUS ACIDOPHILUS (FLORANEX) TAB PO SCH (09:03)
[2019-04-10] MEDS: ENOXAPARIN 100 MG/1ML SYR SQ SCH (09:04)
[2019-04-10] MEDS: CEFEPIME 2,000 MG in SYRINGE 7.5 ML IV SCH (09:05)
--- NOTE | 2019-04-10 10:45 | Infectious Disease Consult ---
Date of Consultation April 10, 2019 Assessment & Plan (1) Decubitus ulcer, stage IV: Patient with multiple decubitus ulcers, with possible secondary infection with Pseudomonas and methicillin sensitive staph aureus. In hopes of decreasing bacterial burden and improving wound healing, would agree with antibiotic therapy. Given that isolate's are fully sensitive, would recommend use of levofloxacin 500 mg daily. Will follow. (2) MSSA (methicillin susceptible Staphylococcus aureus) infection: (3) Pseudomonas aeruginosa infection: History of Present Illness Reason for Consultation: Pseudomonas in wound culture Attending Physician: Michael Kidd History of Present Illness 68-year-old male with history of paraplegia from skiing accident, as well as multiple sclerosis, comp gated by urinary retention requiring self- catheterization, who presented to the hospital with acute onset of right flank pain. He was found to have evidence of probable renal cell carcinoma, and has been found to have extensive DVTs as well as pulmonary emboli and is now on anticoagulation. He has been dealing with multiple sacral and leg and foot decubitus ulcers, being treated with local wound care prior to admission. Cultures from the wound have grown Pseudomonas and methicillin sensitive staph aureus. Was recently started on cefepime. Also with positive urine culture for Citrobacter. Offering no specific complaints at present except for mild right flank pain. Has been afebrile. Allergies Allergy/AdvReac Type Severity Reaction Status Date / Time No Known Allergies Allergy Unverified 04/06/19 10:26 Home Medications Home Medications Medication Instructions Recorded Confirmed Type ascorbic acid (vitamin C) [Vitamin 500 mg PO QAM 04/06/19 04/06/19 History C] aspirin-caffeine [Ismael Back and 2 tab PO QAM 04/06/19 04/06/19 History Body] cyanocobalamin-cobamamide [B-12 1 tab SUBLINGUAL QAM 04/06/19 04/06/19 History Plus] lactobacillus combination no.4 3,000 mmu cells PO QAM 04/06/19 04/06/19 History [Probiotic] ranitidine HCl 150 mg PO QAM 04/06/19 04/06/19 History Patient History Medical History Lower extremity paralysis Family History Other Family history non-contributory Social History Preferred Language: Burmese Communication Ability: Effective Beliefs That Will Affect Care: None Current Living Situation: Spouse Feels Safe at Home: Yes Smoking Status: Never smoker Hx Alcohol Use: No Hx Substance Use: No Review of Systems Review of Systems: All systems reviewed & are unremarkable except as noted in HPI & below Physical Exam Constitutional: WD/WN, vitals as above comfortable; no acute distress Eyes: PERRL, conjunctivae normal, anicteric sclerae ENMT: external ear and nose normal, oropharynx normal Neck: trachea midline, no thyromegaly neck nontender Respiratory: normal respiratory effort, lungs clear to auscultation normal percussion; does not use accessory muscles Cardiovascular: Rate/Rhythm: regular rate and regular rhythm Heart Sounds: normal S1 and normal S2; no gallop, no murmur and no cardiac rub Vessels: normal peripheral pulses; no JVD Gastrointestinal (Abdomen): normal bowel sounds, soft, nontender, no hepatosplenomegaly Musculoskeletal: no cyanosis or clubbing, extremities motor strength 5/5 Spine: thoracic spine normal to inspection and lumbar spine normal to inspection; no cervical spinal tenderness Skin: no rashes, warm and dry normal turgor and + ulcer (Multiple stage II- IV ulcers of legs, feet, and sacral area, little surrounding erythema, no purulence at present) Neurologic: + focal motor deficit (Paraplegic) and awake; + does not move all extremities Psychiatric: A+Ox3, euthymic affect Orientation: cooperative Lymphatic: no cervical or axillary lymphadenopathy no inguinal lymphadenopathy Results & Data Vital Signs (Past 12 Hours) Vital Signs Temp Pulse Resp BP BP Pulse Ox 04/10/19 07:29 36.9 C 78 18 100/63 95 04/10/19 04:15 37.0 C 82 17 94/61 L 96 04/09/19 23:02 36.7 C 98 H 18 99/65 L 91 Laboratory Results Short CBC 04/09/19 04/10/19 Range/Units 15:36 05:36 WBC 14.60 H 11.70 H (4.8-10.8) K/uL Hgb 8.8 L 8.5 L (14.0-18.0) g/dL Hct 28.4 L 28.0 L (42-52) % Plt Count 298 (130-400) K/uL BMP 04/10/19 05:36 Sodium 137 Potassium 3.7 Chloride 105 Carbon Dioxide 26 BUN 29 H Creatinine 1.03 Glucose 87 Calcium 7.5 L Liver Function 04/10/19 Range/Units 05:36 Total Bilirubin 0.4 (0.2-1) mg/dl AST 41 H (15-37) U/L ALT < 6 L (12-78) U/L Alkaline Phosphatase 106 (45-117) U/L Albumin 1.4 L (3.4-5.0) gm/dl Urine 04/09/19 Range/Units 14:20 Urine Color Mary Carmen Urine Appearance Cloudy A (Clear) Urine pH 5.0 (4.5-7.5) Ur Specific Peacham 1.015 (1.000-1.030) Urine Protein 2+ H (Negative) Urine Glucose (UA) Negative (Negative) Diagnostic Findings Microbiology 04/06/19 17:17 Leg,Left Gram Stain - Final 04/06/19 17:17 Leg,Left Wound Culture - Final Pseudomonas aeruginosa Acinetobacter baumannii/haemol 04/06/19 17:17 Leg,Left Gram Stain - Final 04/06/19 17:17 Leg,Left Wound Culture - Final Pseudomonas aeruginosa Staphylococcus aureus 04/06/19 17:17 Leg,Left Gram Stain - Final 04/06/19 17:17 Leg,Left Deep Wound Culture - Final Pseudomonas aeruginosa Staphylococcus aureus 04/06/19 17:17 Leg,Right Gram Stain - Final 04/06/19 17:17 Leg,Right Wound Culture - Final Pseudomonas aeruginosa Staphylococcus aureus 04/06/19 15:53 Blood Aerobic Blood Culture - Preliminary No growth in Aerobic bottle after 48 hours. 04/06/19 15:53 Blood Anaerobic Blood Culture - Final 04/06/19 15:59 Blood Aerobic Blood Culture - Preliminary No growth in Aerobic bottle after 48 hours. 04/06/19 15:59 Blood Anaerobic Blood Culture - Preliminary No growth in Anaerobic bottle after 48 hours. 04/06/19 17:17 Leg,Right Gram Stain - Final 04/06/19 17:17 Leg,Right Wound Culture - Final Pseudomonas aeruginosa 04/06/19 11:31 Urine,Clean Catch Urine Culture - Final Citrobacter koseri CT angio chest PE protocol CLINICAL HISTORY: 68 years-old Male presenting with RCC, evaluate for metastasis, extensive DVT, concern for pulmonary embolus on CT of the abdomen and pelvis, CT chest for complete evaluation. TECHNIQUE: Multidetector CT angiography of the chest was performed after administration of intravenous contrast. 3-D volumetric and/or maximum intensity projection (MIP) images were subsequently reconstructed for review. IV contrast: 120 mL of Optiray 320. One or more dose lowering techniques were used consistent with the principles of ALARA (as low as reasonably achievable), including automatic exposure control, mA or kV adjustment to individual patient size, and/or use of iterative reconstruction. COMPARISON: Bilateral lower extremity Doppler ultrasound from 04/07/[address] of the abdomen and pelvis from 04/07/2019. CT DOSE (mGy.cm): The estimated cumulative dose is 831.98 mGy.cm. FINDINGS: [facility] topogram: Unremarkable. Pulmonary vasculature: The study is suboptimal for the assessment of the pulmonary vascular tree secondary to respiratory motion artifact. Segmental and subsegmental pulmonary emboli in the right lower lobe. The left lung appears uninvolved. Main pulmonary artery is not enlarged. No flattening of the interventricular septum. No intracardiac filling defect. No reflux of contrast into the hepatic veins. Infrahepatic IVC is expanded compatible with known thrombus. Intrahepatic portion patent. Remaining chest: Soft tissues: Normal thyroid and thoracic inlet. No axillary, supraclavicular, mediastinal, or hilar lymphadenopathy. Atherosclerosis of the aorta. Multichamber enlargement of the heart. Coronary artery calcification. No pericardial or pleural effusion. Gallstones noted. Right renal cyst. 14 mm right adrenal nodule again noted. Lungs and airways: No pneumothorax. Central airways patent. Pulmonary arteries mildly enlarged relative to adjacent bronchi. Prominent mosaic attenuation. Minimal interlobular septal thickening may be present. Respiratory motion artifact degrades evaluation of lung parenchyma. Bibasilar dependent changes likely atelectasis. No other superimposed opacity. Musculoskeletal: Degenerative changes of the spine. IMPRESSION: 1. Acute pulmonary emboli in segmental and subsegmental pulmonary arteries of the right lower lobe as seen on CT of the abdomen and pelvis performed yesterday. No CT evidence of right heart strain. This is bland thrombus. 2. No convincing evidence of intrathoracic metastatic disease allowing for image quality. No lymphadenopathy. 3. Mosaic attenuation suggests small airways disease though can also have a vascular etiology. No focal infiltrate to suggest pneumonia or pulmonary infarct. 4. Expanded infrahepatic IVC compatible with known thrombus. 5. Cardiomegaly with volume overload and mild congestive change. No any pulmonary edema. 6. Right adrenal nodule most likely adenoma. 7. Cholelithiasis. Electronically signed by: Emmanuel Galeano M.D. 04/08/2019 11:05 AM Dictated: 04/08/19 1056 Transcribed: 04/08/19 1056 PG Care Time/CCT Total # of Minutes Spent Total Time Spent with Patient: Total time spent is greater than 50% in coordination of care (as documented) at patient's floor/unit and/or counseling patient:
[2019-04-10] MEDS: levoFLOXacin 500 MG TAB PO SCH (11:56)
[2019-04-10] MEDS: ACETAMINOPHEN 325 MG TAB PO PRN (14:57)
[2019-04-10] MEDS: ALUMINUM/MAGNESIUM SUSP 30 ML UDC PO PRN (19:49)
[2019-04-10] MEDS: ENOXAPARIN 80 MG/0.8 ML SYR SQ SCH (20:00)
--- NOTE | 2019-04-10 22:48 | Hospitalist Progress Note ---
Date of Service April 10, 2019 Assessment & Plan (1) Pulmonary embolus: Acute pulmonary emboli in segmental and subsegmental pulmonary arteries of the right lower lobe, no CT evidence of right heart strain. Patient asymptomatic with no chest pain or shortness of breath. Continue Lovenox treatment dose, causing increased bleeding from sacral and leg ulcers in addition to hematuria. Patient's hemoglobin remains below 9 but appears stable. Did check factor XA to make sure lovenox dose is correct given patients BMI. The result was high, so his level was lowered. will recheck level on 04/12 Will hold discharge. Will continue to closely monitor his hemoglobin. Patient will be seen by [facility] surgeon on Tuesday in the outpatient setting. (2) DVT (deep venous thrombosis): Bilateral extensive thrombus due to IVC invasion of tumor from RCC and immobility. Continue Lovenox 80 mg twice daily. 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 Patient is okay to be discharged from this perspective onc hemoglobin stabilized and will follow up with referral to tertiary care center for nephrectomy and IVC thrombus. F/U Dr Hwang in office on d/c. (4) Elevated LFTs: Hepatic congestion from IVC thrombus. (5) Acute pyelonephritis: Ruled out. Discussed with Dr. Lou. Given clear etiology of his right flank pain with bleed from renal cell carcinoma agree with holding further antibiotics. (6) Paraplegia: Continue supportive and conservative management (7) Decubitus ulcer, stage IV: 3 decubitus ulcer ranging from stage II-IV and his lower back and sacral area Multiple large decubitus ulcers also stage III-IV in both feet and calf muscle No surrounding cellulitis. Gram negative bacilli on all cultures. will continue antibiotics as showing pseudomonas and mssa. 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 No acute management. Careful movement of limbs. (10) Discharge planning issues: Code - full Follow-up with oncology and urology to refer to tertiary care center. Discharge home on Lovenox. Spent 35 minutes in management of patient. Subjective Patient reports feeling well. He has no new complaints. He has questions regarding who his provider will be at [facility] and whe the appointment will be. This was answered. Review of Systems Review of Systems: All systems reviewed & are unremarkable except as noted in HPI & below Physical Exam Physical Exam: Constitutional: WD/WN, vitals as above (low normal BP) not lethargic Eyes: normal visual angel by confrontation; normal pupil size ENMT: external ear and nose normal, oropharynx normal Respiratory: normal respiratory effort, lungs clear to auscultation Cardiovascular: Rate/Rhythm: regular rate and regular rhythm Heart Sounds: normal S1 and normal S2; no murmur Extremities: + edema (2+ b/l) Gastrointestinal (Abdomen): normal bowel sounds, soft, nontender, no hepatosplenomegaly Neurologic: + focal motor deficit (paralyzed from waist down with no sensation or movement) and awake Psychiatric: A+Ox3, euthymic affect Results & Data Vital Signs (Past 12 Hours) Vital Signs Temp Pulse Pulse Resp BP Pulse Ox 04/10/19 20:08 37.2 C 74 20 107/63 96 04/10/19 19:36 85 04/10/19 11:13 36.8 C 77 18 106/68 97 PG Care Time/CCT Total # of Minutes Spent Total Time Spent with Patient: Total time spent is greater than 50% in coordination of care (as documented) at patient's floor/unit and/or counseling patient: (1) Pulmonary embolus Acute cor pulmonale presence: without acute cor pulmonale Chronicity: acute Pulmonary embolism type: other Qualified Code(s): I26.99 - Other pulmonary embolism without acute cor pulmonale
[2019-04-11] MEDS: OXYCODONE/ACETAMINOPHEN 5mg/325mg TAB PO PRN (00:34)
[2019-04-11] MEDS: ASCORBIC ACID 500 MG TAB PO SCH (08:38)
[2019-04-11] MEDS: LACTOBACILLUS ACIDOPHILUS (FLORANEX) TAB PO SCH (08:38)
[2019-04-11] MEDS: ENOXAPARIN 80 MG/0.8 ML SYR SQ SCH ×2 (08:39→22:03)
[2019-04-11 08:59] LABS: Hematocrit (blood only) 28.7 % (42-52); Hemoglobin 8.9 g/dL (14.0-18.0); Mean Corpuscular Hemoglobin 25.5 pg (25-34); Mean Corpuscular Volume 82.2 fL (80-100); Mean Platelet Volume 8.7 fL (7.4-10.4); Platelet Count 312 K/uL (130-400); RDW Coefficient of Variation 16.8 % (11.5-14.5); RDW Standard Deviation 49.8 fL (36.4-46.3); Red Blood Count 3.49 M/uL (4.7-6.1); White Blood Count 9.63 K/uL (4.8-10.8)
[2019-04-11 09:16] LABS: BUN Creatinine Ratio 28.6 (10-20); Calcium 7.8 mg/dl (8.5-10.1); Creatinine Clr Calc Pharmacy 90.5 ml/min; Est GFR (African American) 92.4; Est GFR (Non-African American) 79.8; Potassium 3.7 mmol/L (3.5-5.1)
[2019-04-11] MEDS: levoFLOXacin 500 MG TAB PO SCH (12:03)
--- NOTE | 2019-04-11 21:30 | Infectious Disease Progress Nt ---
Date of Service April 11, 2019 Assessment & Plan (1) Decubitus ulcer, stage IV: Patient with multiple decubitus ulcers, with possible secondary infection with Pseudomonas and methicillin sensitive staph aureus. In hopes of decreasing bacterial burden and improving wound healing, patient to continue levofloxacin. Will follow. (2) MSSA (methicillin susceptible Staphylococcus aureus) infection: (3) Pseudomonas aeruginosa infection: Subjective Patient seen in follow-up for infected decubitus ulcerations. Offers no new complaints today. Tolerating antibiotic without apparent difficulty. Remains afebrile. Review of Systems Review of Systems: All systems reviewed & are unremarkable except as noted in HPI & below Physical Exam Constitutional: WD/WN, vitals as above comfortable; no acute distress Eyes: PERRL, conjunctivae normal, anicteric sclerae ENMT: external ear and nose normal, oropharynx normal Neck: trachea midline, no thyromegaly neck nontender Respiratory: normal respiratory effort, lungs clear to auscultation normal percussion; does not use accessory muscles Cardiovascular: Rate/Rhythm: regular rate and regular rhythm Heart Sounds: normal S1 and normal S2; no gallop, no murmur and no cardiac rub Vessels: normal peripheral pulses; no JVD Gastrointestinal (Abdomen): normal bowel sounds, soft, nontender, no hepatosplenomegaly Musculoskeletal: no cyanosis or clubbing, extremities motor strength 5/5 Spine: thoracic spine normal to inspection and lumbar spine normal to inspection; no cervical spinal tenderness Skin: no rashes, warm and dry normal turgor and + ulcer (Multiple stage II- IV ulcers of legs, feet, and sacral area, little surrounding erythema, no purulence at present) Neurologic: + focal motor deficit (Paraplegic) and awake; + does not move all extremities Psychiatric: A+Ox3, euthymic affect Orientation: cooperative Lymphatic: no cervical or axillary lymphadenopathy no inguinal lymphadenopathy Results & Data Vital Signs (Past 12 Hours) Vital Signs Temp Pulse Pulse Resp BP BP Pulse Ox 04/11/19 19:11 36.7 C 85 18 101/66 96 04/11/19 17:30 79 04/11/19 12:09 36.8 C 68 20 93/56 L 93 Laboratory Results Short CBC 04/11/19 Range/Units 08:46 WBC 9.63 (4.8-10.8) K/uL Hgb 8.9 L (14.0-18.0) g/dL Hct 28.7 L (42-52) % Plt Count 312 (130-400) K/uL BMP 04/11/19 08:46 Sodium 136 Potassium 3.7 Chloride 104 Carbon Dioxide 27 BUN 28 H Creatinine 0.96 Glucose 108 H Calcium 7.8 L Diagnostic Findings Microbiology 04/06/19 17:17 Leg,Left Gram Stain - Final 04/06/19 17:17 Leg,Left Wound Culture - Final Pseudomonas aeruginosa Acinetobacter baumannii/haemol 04/06/19 17:17 Leg,Left Gram Stain - Final 04/06/19 17:17 Leg,Left Wound Culture - Final Pseudomonas aeruginosa Staphylococcus aureus 04/06/19 17:17 Leg,Left Gram Stain - Final 04/06/19 17:17 Leg,Left Deep Wound Culture - Final Pseudomonas aeruginosa Staphylococcus aureus 04/06/19 17:17 Leg,Right Gram Stain - Final 04/06/19 17:17 Leg,Right Wound Culture - Final Pseudomonas aeruginosa Staphylococcus aureus 04/06/19 15:53 Blood Aerobic Blood Culture - Preliminary No growth in Aerobic bottle after 48 hours. 04/06/19 15:53 Blood Anaerobic Blood Culture - Final 04/06/19 15:59 Blood Aerobic Blood Culture - Preliminary No growth in Aerobic bottle after 48 hours. 04/06/19 15:59 Blood Anaerobic Blood Culture - Preliminary No growth in Anaerobic bottle after 48 hours. 04/06/19 17:17 Leg,Right Gram Stain - Final 04/06/19 17:17 Leg,Right Wound Culture - Final Pseudomonas aeruginosa 04/06/19 11:31 Urine,Clean Catch Urine Culture - Final Citrobacter koseri PG Care Time/CCT Total # of Minutes Spent Total Time Spent with Patient: Total time spent is greater than 50% in coordination of care (as documented) at patient's floor/unit and/or counseling patient:
[2019-04-11] MEDS: ACETAMINOPHEN 325 MG TAB PO PRN (22:02)
--- NOTE | 2019-04-11 22:58 | Hospitalist Progress Note ---
Date of Service April 11, 2019 Assessment & Plan (1) Pulmonary embolus: Acute pulmonary emboli in segmental and subsegmental pulmonary arteries of the right lower lobe, no CT evidence of right heart strain. Patient asymptomatic with no chest pain or shortness of breath. Continue Lovenox treatment dose, causing increased bleeding from sacral and leg ulcers in addition to hematuria. Patient's hemoglobin remains below 9 but appears stable. Did check factor XA to make sure lovenox dose is correct given patients BMI. The result was high, so his level was lowered. will recheck level on 04/12 which will be tomorrow. Will hold discharge. Will continue to closely monitor his hemoglobin. Patient will be seen by [place] surgeon on Tuesday in the outpatient setting. (2) DVT (deep venous thrombosis): Bilateral extensive thrombus due to IVC invasion of tumor from RCC and immobility. Continue Lovenox 80 mg twice daily. 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 Patient is okay to be discharged from this perspective onc hemoglobin stabilized and will follow up with referral to tertiary care center for nephrectomy and IVC thrombus. F/U Dr Hwang in office on d/c. (4) Elevated LFTs: Hepatic congestion from IVC thrombus. (5) Acute pyelonephritis: Ruled out. Discussed with Dr. Lou. Given clear etiology of his right flank pain with bleed from renal cell carcinoma agree with holding further antibiotics. (6) Paraplegia: Continue supportive and conservative management (7) Decubitus ulcer, stage IV: 3 decubitus ulcer ranging from stage II-IV and his lower back and sacral area Multiple large decubitus ulcers also stage III-IV in both feet and calf muscle No surrounding cellulitis. Gram negative bacilli on all cultures. will continue antibiotics as showing pseudomonas and mssa. 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 No acute management. Careful movement of limbs. (10) Discharge planning issues: Code - full Follow-up with oncology and urology to refer to tertiary care center. Discharge home on Lovenox. Spent 25 minutes in management of patient. Subjective Patient has no new complaints. Patient has questions regarding his blood count which were answered. Review of Systems Review of Systems: Review of system Constitutional: No fever / no chills / no sweats / no weakness / no fatigue Eyes: no blurring of vision / no eye pain / no discharge / no redness ENT: no hearing loss / no epistaxis /no swallowing problems Respiratory: no cough / no wheezing / no SOB / no hemoptysis Cardiovascular: no Chest pain / no lower extremity edema / no palpitation Abdomen: Positive right flank pain Musculoskeletal: no joint pain / no muscle pain / no joint swelling Genitourinary: Patient has urinary retention as baseline, currently his urine is smelly and cloudy Neurologic: Awake alert oriented, baseline paraplegia Psychiatric: no depression symptoms / no anxiety / no insomnia Endocrine: no excessive thirst / no excessive urination Hematologic: no abnormal bleeding / no bruising / no LN swelling Skin: No rash / no pallor/baseline stage III-IV multiple bilateral lower extremity and decubitus ulcers Physical Exam Physical Exam: Constitutional: WD/WN, vitals as above (low normal BP) not lethargic Eyes: normal visual angel by confrontation; normal pupil size ENMT: external ear and nose normal, oropharynx normal Respiratory: normal respiratory effort, lungs clear to auscultation Cardiovascular: Rate/Rhythm: regular rate and regular rhythm Heart Sounds: normal S1 and normal S2; no murmur Extremities: + edema (2+ b/l) Gastrointestinal (Abdomen): normal bowel sounds, soft, nontender, no hepatosplenomegaly Neurologic: + focal motor deficit (paralyzed from waist down with no sensation or movement) and awake Psychiatric: A+Ox3, euthymic affect Results & Data Vital Signs (Past 12 Hours) Vital Signs Temp Pulse Pulse Resp BP BP Pulse Ox 04/11/19 19:11 36.7 C 85 18 101/66 96 04/11/19 17:30 79 04/11/19 12:09 36.8 C 68 20 93/56 L 93 PG Care Time/CCT Total # of Minutes Spent Total Time Spent with Patient: Total time spent is greater than 50% in coordination of care (as documented) at patient's floor/unit and/or counseling patient: (1) Pulmonary embolus Acute cor pulmonale presence: without acute cor pulmonale Chronicity: acute Pulmonary embolism type: other Qualified Code(s): I26.99 - Other pulmonary embolism without acute cor pulmonale
[2019-04-12] MEDS: ENOXAPARIN 80 MG/0.8 ML SYR SQ SCH ×2 (08:25→20:35)
[2019-04-12] MEDS: LACTOBACILLUS ACIDOPHILUS (FLORANEX) TAB PO SCH (08:26)
[2019-04-12] MEDS: ASCORBIC ACID 500 MG TAB PO SCH (08:26)
[2019-04-12] MEDS: levoFLOXacin 500 MG TAB PO SCH (10:38)
[2019-04-12 12:51] LABS: Hematocrit (blood only) 28.5 % (42-52); Hemoglobin 8.7 g/dL (14.0-18.0); Mean Corpuscular Hemoglobin 25.4 pg (25-34); Mean Corpuscular Hgb Conc 30.5 g/dL (32-36); Mean Corpuscular Volume 83.1 fL (80-100); Mean Platelet Volume 8.3 fL (7.4-10.4); Platelet Count 343 K/uL (130-400); RDW Coefficient of Variation 16.7 % (11.5-14.5); RDW Standard Deviation 50.9 fL (36.4-46.3); Red Blood Count 3.43 M/uL (4.7-6.1); White Blood Count 8.42 K/uL (4.8-10.8)
[2019-04-12] MEDS: ALUMINUM/MAGNESIUM SUSP 30 ML UDC PO PRN (17:58)
--- NOTE | 2019-04-12 23:13 | Hospitalist Progress Note ---
Date of Service April 12, 2019 Assessment & Plan (1) Pulmonary embolus: Acute pulmonary emboli in segmental and subsegmental pulmonary arteries of the right lower lobe, no CT evidence of right heart strain. Patient asymptomatic with no chest pain or shortness of breath. Continue Lovenox treatment dose, causing increased bleeding from sacral and leg ulcers in addition to hematuria. Patient's hemoglobin remains below 9 but appears stable. Did check factor XA to make sure lovenox dose is correct given patients BMI. The result was high, so his level was lowered. rechecked level was closer to goal AT 1.06; Will keep this goal. will discharge tomorrow. Will continue to closely monitor his hemoglobin. Patient will be seen by [place] surgeon on Tuesday in the outpatient setting. (2) DVT (deep venous thrombosis): Bilateral extensive thrombus due to IVC invasion of tumor from RCC and immobility. Continue Lovenox 80 mg twice daily. 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 Patient is okay to be discharged from this perspective onc hemoglobin stabilized and will follow up with referral to tertiary care center for nephrectomy and IVC thrombus. F/U Dr Hwang in office on d/c. (4) Elevated LFTs: Hepatic congestion from IVC thrombus. (5) Acute pyelonephritis: Ruled out. Discussed with Dr. Lou. Given clear etiology of his right flank pain with bleed from renal cell carcinoma agree with holding further antibiotics. (6) Paraplegia: Continue supportive and conservative management (7) Decubitus ulcer, stage IV: 3 decubitus ulcer ranging from stage II-IV and his lower back and sacral area Multiple large decubitus ulcers also stage III-IV in both feet and calf muscle No surrounding cellulitis. Gram negative bacilli on all cultures. will continue antibiotics as showing pseudomonas and mssa. 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 No acute management. Careful movement of limbs. (10) Discharge planning issues: Code - full Follow-up with oncology and urology to refer to tertiary care center. Discharge home on Lovenox. Subjective Patient is a 68 yo male, reports no new symptoms. Review of Systems Review of Systems: All systems reviewed & are unremarkable except as noted in HPI & below Physical Exam Physical Exam: Constitutional: WD/WN, vitals as above (low normal BP) not lethargic Eyes: normal visual angel by confrontation; normal pupil size ENMT: external ear and nose normal, oropharynx normal Respiratory: normal respiratory effort, lungs clear to auscultation Cardiovascular: Rate/Rhythm: regular rate and regular rhythm Heart Sounds: normal S1 and normal S2; no murmur Extremities: + edema (2+ b/l) Gastrointestinal (Abdomen): normal bowel sounds, soft, nontender, no hepatosplenomegaly Neurologic: + focal motor deficit (paralyzed from waist down with no sensation or movement) and awake Psychiatric: A+Ox3, euthymic affect Results & Data Vital Signs (Past 12 Hours) Vital Signs Temp Pulse Pulse Resp BP Pulse Ox 04/12/19 19:25 36.5 C 86 18 127/81 96 04/12/19 17:27 90 04/12/19 15:33 36.4 C L 93 H 18 105/71 92 PG Care Time/CCT Total # of Minutes Spent Total Time Spent with Patient: Total time spent is greater than 50% in coordination of care (as documented) at patient's floor/unit and/or counseling patient: (1) Pulmonary embolus Pulmonary embolism type: other Chronicity: acute Acute cor pulmonale presence: without acute cor pulmonale Qualified Code(s): I26.99 - Other pulmonary embolism without acute cor pulmonale
[2019-04-12] MEDS: ACETAMINOPHEN 325 MG TAB PO PRN (23:50)
[2019-04-13 06:07] LABS: Hematocrit (blood only) 28.2 % (42-52); Hemoglobin 8.5 g/dL (14.0-18.0); Mean Corpuscular Hemoglobin 25.4 pg (25-34); Mean Corpuscular Hgb Conc 30.1 g/dL (32-36); Mean Corpuscular Volume 84.2 fL (80-100); Mean Platelet Volume 8.5 fL (7.4-10.4); Platelet Count 381 K/uL (130-400); RDW Coefficient of Variation 16.7 % (11.5-14.5); RDW Standard Deviation 51.1 fL (36.4-46.3); Red Blood Count 3.35 M/uL (4.7-6.1); White Blood Count 8.06 K/uL (4.8-10.8)
[2019-04-13] MEDS: ASCORBIC ACID 500 MG TAB PO SCH (08:41)
[2019-04-13] MEDS: LACTOBACILLUS ACIDOPHILUS (FLORANEX) TAB PO SCH (08:41)
[2019-04-13] MEDS: ENOXAPARIN 80 MG/0.8 ML SYR SQ SCH (08:41)
[2019-04-13] MEDS: levoFLOXacin 500 MG TAB PO SCH (08:42)
--- NOTE | 2019-04-23 11:12 | Discharge Summary ---
Date of Service April 13, 2019 Principal Diagnosis Acute Pulmonary emboli Discharge Exam Constitutional: WD/WN, vitals as above (low normal BP) not lethargic Eyes: normal visual angel by confrontation; normal pupil size ENMT: external ear and nose normal, oropharynx normal Respiratory: normal respiratory effort, lungs clear to auscultation Cardiovascular: Rate/Rhythm: regular rate and regular rhythm Heart Sounds: normal S1 and normal S2; no murmur Extremities: + edema Gastrointestinal (Abdomen): normal bowel sounds, soft, nontender, no hepatosplenomegaly Neurologic: + focal motor deficit (paralyzed from waist down with no sensation or movement) and awake Psychiatric: A+Ox3, euthymic affect Discharge Data Allergies Allergy/AdvReac Type Severity Reaction Status Date / Time No Known Allergies Allergy Unverified 04/06/19 10:26 Consultations 04/06/19 12:52 ED Decision to Admit Stat 04/06/19 14:30 Consult Urology Routine 04/06/19 14:34 Consult Wound Care Provider Stat 04/08/19 12:18 Consult Oncology Routine 04/09/19 15:32 Consult Infectious Diseases Routine 04/13/19 07:45 Burn CD for patient Stat 04/13/19 08:35 Consult [facility] design director Routine Ordered Studies 04/06/19 09:58 CT abd pelvis wo con Stat CT femur LT wo con Stat 04/07/19 10:34 CT abdomen pelvis wo/w con Urgent 04/07/19 16:27 US venous doppler LE BI Stat 04/08/19 09:15 CT angio chest PE protocol Routine Hospital Course (1) Pulmonary embolus: Acute pulmonary emboli in segmental and subsegmental pulmonary arteries of the right lower lobe, no CT evidence of right heart strain. Patient asymptomatic with no chest pain or shortness of breath. Continue Lovenox treatment dose, causing increased bleeding from sacral and leg ulcers in addition to hematuria. Patient's hemoglobin remains below 9 but appears stable. Did check factor XA to make sure lovenox dose is correct given patients BMI. The result was high, so his level was lowered. rechecked level was closer to goal AT 1.06; Will keep this dose then will discharge ttoday. Patient will be seen by [place] surgeon today in the outpatient setting. (2) DVT (deep venous thrombosis): Bilateral extensive thrombus due to IVC invasion of tumor from RCC and immobility. Continue Lovenox 80 mg twice daily. 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 Patient is okay to be discharged from this perspective onc hemoglobin stabilized and will follow up with referral to tertiary care center for nephrectomy and IVC thrombus. F/U Dr Hwang in office on d/c. (4) Elevated LFTs: Hepatic congestion from IVC thrombus. (5) Acute pyelonephritis: Ruled out. Discussed with Dr. Lou. Given clear etiology of his right flank pain with bleed from renal cell carcinoma agree with holding further antibiotics. (6) Paraplegia: Continue supportive and conservative management (7) Decubitus ulcer, stage IV: 3 decubitus ulcer ranging from stage II-IV and his lower back and sacral area Multiple large decubitus ulcers also stage III-IV in both feet and calf muscle No surrounding cellulitis. Gram negative bacilli on all cultures. will continue antibiotics as showing pseudomonas and mssa. 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 No acute management. Careful movement of limbs. (10) Discharge planning issues: Code - full Follow-up with oncology and urology to refer to tertiary care center. Discharge home on Lovenox. 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 Darion Lou on TuesdayApril 27 at 12:15 pm. *The office is located at [address] in [place]. If you need to change this appointment, call the office at [phone].) Elsie Brice DO [Physician] - 04/19/19 10:30 am (A follow up appt. has been made for you with Dr. Brice on 04/19 at 10:30am.) Walter Hwang [Physician] - (Please, follow up at [facility] with either Dr. Alegre or Dr. Hwang. *A nurse from this office will call you with the appointment information. The office is located in the rear this hospital building. YOU WILL PARK BEHIND THE HOSPITAL IN [address] AND ENTER VIA THE [facility]TR[facility]. If you have any questions, call the office at [phone]. ) Diego Lou [Primary Care Provider] - 04/16/19 9:00 am (Please, follow up at Dr. Diego Lou's office on TuesdayApril 16 at 9:00 am. *If you need to change this appointment, call the office at [phone].) Armida Reyes MD [Outside Practitioners] - 04/13/19 1:50 pm (Please, follow up at [facility] with Dr. Armida Reyes on TuesdayApril 13 at 1:50 pm. *This is for consultation regarding surgical removal of your kidney. The office is located at [address] in [place]. You will use Entrance # 4, take the elevators to the 3rd floor, and her office is in [address]. If you have any questions or need to reschedule the appointment, call the office at [phone] option # 1 .) Diet: Regular Addtl Attending Provider Instructions: You were admitted with right flank pain was diagnosed with tumor (suspected renal cell carcinoma) of your right kidney. You were evaluated by urology (Dr Lou) and oncology (Dr Hwang) and recommended discharging from hospital with referral to a tertiary care center for removal of this kidney. In addition this caused a blood clot (thrombus) in your inferior vena cava causing additional blood clots to form proximally and distally in your leg veins and lung arteries. You have been started on treatment injections for this and will follow-up with Dr. Hwang to determine length of treatment. Will have you see procider in [facility] today, for possible nephrectomy. Given how you need to be on lovenox for 4-6 weeks to stabilize clots, unsure if surgeon will want to perform the procedure as of now. Will defer to surgeon. will have you followup with wound care clinic as well. Pending Studies at Discharge: No Stand-Alone Forms: [facility] Medications and DC Order Prescriptions: New levofloxacin 500 mg Tablet 500 mg PO DAILY@1100 Qty: 10 RF: 0 enoxaparin 80 mg/0.8 mL syringe 80 mg SQ Q12H Qty: 480 RF: 0 oxycodone-acetaminophen 5-325 mg tablet 1 tab PO Q4H PRN (Reason: pain) Qty: 20 RF: 0 Continued ascorbic acid (vitamin C) [Vitamin C] 500 mg Tablet 500 mg PO QAM RF: 0 ranitidine HCl 150 mg tablet 150 mg PO QAM RF: 0 cyanocobalamin-cobamamide [B-12 Plus] 5,000-100 mcg Tablet, Sublingual 1 tab SUBLINGUAL QAM RF: 0 Ismael Back and Body 500-32.5 mg Tablet 2 tab PO QAM RF: 0 Probiotic 3 billion cell Capsule 3,000 mmu cells PO QAM RF: 0 Discharge Orders: Discharge Order (Routine); Ordered 04/13/19 Ordered By: Michael Kidd Admission Data Admit Date/Time: 04/06/19 14:30 Attending Provider: Michael Kidd Admit Provider: Tacos Shi Primary Care Provider: Diego Lou Other Providers: Tacos Shi ; Darion Lou I. ; [place] Prog,Nurse ; Walter Hwang ; Adolfo Nicole Other Interventions: Discharge Summary Assessment (RN) Last Done: 04/13/19 08:48 DC Date/Time DO NOT enter until pt leaves facility: 04/13/19 09:27
== END 2019-04-13 09:27 | disposition home or self-care (01) | DRG 686 ==
LOC: EDSEX → ED 09:36 → SUATTDRO 14:30 → 2S 14:30 → 2N 04-08 13:51
DX: D41.01 Neoplasm of uncertain behavior of right kidney; N28.89 Other specified disorders of kidney and ureter; G82.20 Paraplegia, unspecified; L89.154 Pressure ulcer of sacral region, stage 4; R60.9 Edema, unspecified; B96.5 Pseudomonas (aeruginosa) (mallei) (pseudomallei) as the cause of diseases classified elsewhere; N39.0 Urinary tract infection, site not specified; L89.323 Pressure ulcer of left buttock, stage 3; L89.313 Pressure ulcer of right buttock, stage 3; I26.99 Other pulmonary embolism without acute cor pulmonale; B95.61 Methicillin susceptible Staphylococcus aureus infection as the cause of diseases classified elsewhere

== ENCOUNTER 2019-06-09 12:04 | Inpatient (IN) ==
[2019-06-09 12:34] LABS: Basophils # (auto) 0.01 K/uL (0-0.2); Basophils % (auto) 0.1 %; Eosinophils # (auto) 0.23 K/uL (0-0.5); Eosinophils % (auto) 2.8 %; Hematocrit (blood only) 25.5 % (42-52); Hemoglobin 7.6 g/dL (14.0-18.0); Immature Granulocytes # (auto) 0.06 K/uL (0.00-0.02); Immature Granulocytes % (auto) 0.7 %; Lymphocytes # (auto) 1.01 K/uL (1.2-3.4); Lymphocytes % (auto) 12.3 %; Mean Corpuscular Hemoglobin 25.2 pg (25-34); Mean Corpuscular Hgb Conc 29.8 g/dL (32-36); Mean Corpuscular Volume 84.4 fL (80-100); Mean Platelet Volume 8.3 fL (7.4-10.4); Monocytes # (auto) 0.63 K/uL (0.11-0.59); Monocytes % (auto) 7.7 %; Neutrophils # (auto) 6.26 K/uL (1.4-6.5); Neutrophils % (auto) 76.4 %; Platelet Count 279 K/uL (130-400); RDW Coefficient of Variation 17.3 % (11.5-14.5); RDW Standard Deviation 50.6 fL (36.4-46.3); Red Blood Count 3.02 M/uL (4.7-6.1)
[2019-06-09 12:44] LABS: Partial Thromboplastin Ratio 1.5; Partial Thromboplastin Time 40.4 Seconds (21.0-31.0); Prothrombin Time 9.9 Seconds (9.0-12.0)
[2019-06-09 12:51] LABS: Albumin Level 2.8 gm/dl (3.4-5.0); BUN Creatinine Ratio 35.4 (10-20); Calcium 8.6 mg/dl (8.5-10.1); Creatinine Clr Calc Pharmacy 117.9 ml/min; Est GFR (African American) 108.9; Potassium 4.4 mmol/L (3.5-5.1)
[2019-06-09 12:54] LABS: Albumin Globulin Ratio 0.6 (0.9-2); Bilirubin,Total 0.9 mg/dl (0.2-1); Globulin 4.9 gm/dl (2.5-4.0); Total Protein 7.7 gm/dl (6.4-8.2)
[2019-06-09 12:58] LABS: Hypochromasia Present
[2019-06-09] MEDS ORDERED: IOVERSOL 100ml IV PRN (13:22)
--- NOTE | 2019-06-09 13:47 | CT Scan Report ---
CT SCAN OF THE RIGHT HUMERUS WITH IV CONTRAST CLINICAL HISTORY: Increasing right upper extremity swelling. COMPARISON STUDY: Abdominal CT dated 04/07/2019. TECHNIQUE: Following the IV administration of 94 cc of Optiray 320, CT scan of the right humerus is p erformed from the shoulder to the elbow. Images are reviewed in the axial, sagittal, and coronal plan es. IV contrast was administered without complication. A dose lowering technique was utilized adherin g to the principles of ALARA. Note that interpretation is suboptimal without plain film correlate. CT DOSE: 1605.73 mGy.cm FINDINGS: The skeletal structures are osteopenic. There is no evidence of right humeral fracture. The shoulder and elbow joints are grossly maintained noting degenerative change. No lytic or blastic les ion is seen. There is diffuse superficial and deep soft tissue edema identified in the right upper ex tremity which extends to the right axilla. There is a multiloculated complex fluid collection identif ied within the biceps muscle at the level of the mid to distal humeral shaft. This measures approxima tely 13.5 x 6 x 4 cm in aggregate dimension. Small foci of active extravasation are identified within this collection on axial image #342. No additional organized fluid collection is identified. The rig ht brachial artery appears patent. The partially imaged right-sided ribs appear intact. Partially aakash ged right lung parenchyma appears clear noting scattered calcified granulomas. The gallbladder is par tially visualized in the right upper quadrant. The gallbladder is distended and there are calcified g allstones. Peripherally calcified renal lesions/cysts are again noted an similar to previous. There i s no right axillary adenopathy. IMPRESSION: 1. No acute bony abnormality is seen involving the right humerus. 2. There is a large complex intramuscular collection identified within the biceps. The appearance is typical for an intramuscular hematoma and active extravasation is identified at the time of examinati on. 3. Superficial and deep soft tissue edema is present throughout the right upper extremity. 4. Cholelithiasis. Electronically signed by: Jimmy Lunsford M.D. 06/09/2019 1:45 PM
[2019-06-09] MEDS ORDERED: PROTAMINE SULFATE 50 MG in DEXTROSE 5% 50 ML IV ONE (14:25)
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
[2019-06-09] MEDS ORDERED: MoRPHine SULFATE 2 MG/ML CARP IV PRN (15:58)
--- NOTE | 2019-06-09 18:39 | Emergency Department Note ---
Entered by Caitlin Ch acting as a scribe for Arley Abraham DO History of Present Illness General Chief complaint: Swelling/Edema to Extremity Stated complaint: SWELLING TO R ARM Source: patient History of Present Illness Onset (ago): day(s) 1 Location: upper extremity and right Pain Consistency: + other (worsening) Maximum Pain Intensity: 7 Quality: + other (swelling) Associated symptoms: + other (positive right arm pain; positive right arm bruising; negative numbness; negative tingling) The patient is a 68 year old male with a PMHx of DVT and PE who presents to the Emergency Room with complaints of worsening right arm swelling that began yesterday morning. The patient states that 2 days ago he was reaching for something in his car when he twisted this arm. He states that since this time he has had pain, swelling, and bruising over this arm. This has been worsening. The patient denies tingling and numbness to his arm. The patient states that he is on Lovanox and has been since the end of March, approximately 2 months ago after a DVT and PE. The patient states that it is believed that he might have kidney cancer. Home Medications Home Medications Medication Instructions Recorded Confirmed Type Ismael Back and Body 2 tab PO QAM 04/06/19 06/09/19 History Probiotic 3,000 mmu cells PO QAM 04/06/19 06/09/19 History ascorbic acid (vitamin C) [Vitamin 500 mg PO QAM 04/06/19 06/09/19 History C] cyanocobalamin-cobamamide [B-12 1 tab SUBLINGUAL QAM 04/06/19 06/09/19 History Plus] ranitidine HCl 150 mg PO QAM 04/06/19 06/09/19 History enoxaparin 80 mg SQ Q12H #480 ml 04/13/19 06/09/19 Rx oxycodone-acetaminophen 1 tab PO Q4H PRN #20 tab 04/13/19 06/09/19 Rx Allergies Allergy/AdvReac Type Severity Reaction Status Date / Time No Known Allergies Allergy Unverified 04/06/19 10:26 Past Med/Surg History Medical History Bilateral lower extremity edema Decubitus ulcer, stage IV DVT (deep venous thrombosis) Elevated LFTs Intercondylar fracture of femur Lower extremity paralysis MSSA (methicillin susceptible Staphylococcus aureus) infection Paraplegia Pseudomonas aeruginosa infection Pulmonary embolus Renal mass (Acute) 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 and A total of 10 systems reviewed and were otherwise negative Physical Exam Vital Signs Vital Signs - 24 hr 06/09/19 12:06 06/09/19 14:27 06/09/19 14:28 Temperature 36.7 C Temperature Source Oral Pulse Rate 69 Pulse Rate [Finger] 75 Respiratory Rate 18 17 Respiratory Effort / Characteristics Non-Labored Spontaneous Respiratory Depth Normal Respiratory Pattern Regular Blood Pressure 145/75 H Blood Pressure [Left Arm] 132/67 Blood Pressure Mean 98 Blood Pressure Mean [Left Arm] 88 Blood Pressure Position Sitting Pulse Oximetry 97 97 97 Oxygen Delivery Method Room Air Room Air Room Air Sepsis Recent Fever Within 48 Hours No Sepsis New/Unexplained Change in Mental Status No Sepsis Action Taken by Nursing No Action Required GENERAL: Sitting up in wheelchair, talking in full sentences. Alert, well appearing, well nourished, no distress, non-toxic EYE EXAM: normal conjunctiva OROPHARYNX: no exudate, no erythema, lips, buccal mucosa, and tongue normal and mucous membranes are moist NECK: supple, no nuchal rigidity, no adenopathy, non-tender LUNGS: Clear to auscultation. Normal chest wall mechanics HEART: no murmurs, S1 normal and S2 normal ABDOMEN: abdomen soft, non-tender, normo-active bowel sounds, no masses, no rebound or guarding. BACK: Back is symmetrical on inspection and there is no deformity, no midline tenderness, no CVA tenderness. SKIN: no rashes and no bruising UPPER EXTREMITIES: Right humerus with swelling and bruising tracking through elbow. Significantly larger than the left. Right forearm with bruising and swelling, larger than the left. Radial pulses 2/4. Grasp, abduction, flexion, and extension of the wrist, elbow, and shoulder intact. LOWER EXTREMITIES: No pitting edema. NEURO EXAM: Normal sensorium, cranial nerves II-XII grossly intact, normal speech, no gross weakness of arms. Course Course ED COURSE: Vital signs were reviewed and showed hypertension. The patients medical record was reviewed The above diagnostic studies were performed and reviewed. ED treatments and interventions as stated above. 1211: The patient was evaluated in room B7. A complete history and physical examination was performed. 1417: Upon reevaluation, the patient is resting comfortably. I discussed my findings with the patient and he understands and agrees with the treatment plan. Based on the patients age, coexisting illnesses, exam and lab findings the decision to treat as an inpatient was made. The patient remained stable while under my care. 1430: The patient will be evaluated for further management by Dr. [facility] Hospitalist who accepts the patient under his service. Administered Medications Discontinued Medications Protamine Sulfate 50 mg/ (Dextrose) 55 mls @ 300 mls/hr IV ONE ONE Stop: 06/09/19 14:34 Last Infusion: 06/09/19 14:54 Dose: 0 mls/hr Documented by: [id number] Admin: 06/09/19 14:38 Dose: 300 mls/hr Documented by: [id number] Ioversol (Optiray 320 100ml) 94 ml IV ONCE PRN PRN Reason: Interaction Checking Stop: 06/13/19 13:21 Last Admin: 06/09/19 13:22 Dose: 94 ml Documented by: [id number] Critical Care Time Critical Care Time: Yes Total Critical Care Time: 35 I have personally spent 35 minutes of critical care time in the direct management of this patient. This includes bedside care, interpretation of diagnostic studies, and testing, discussion with consultants, patient, and family members, and other required patient management activities. This 35 minutes is in excess of all separately billable procedures. Medical Decision Making Differential Diagnosis Differential diagnoses include major intracranial, cervical, spinal, thoracic, abdominal, pelvic and neurologic injury. Fracture, contusion, sprain, strain, laceration, abrasions included as well. Medical Records Attestation: I reviewed the patient's medical records. Home Medications Current Medication List: was personally reviewed by me Laboratory Data Attestation: I reviewed the patient's lab results. Result diagrams: 06/09/19 12:21 06/09/19 12:21 Lab Results 06/09/19 06/09/19 06/09/19 Range/Units 12:21 12:21 12:21 WBC 8.20 (4.8-10.8) K/uL RBC 3.02 L (4.7-6.1) M/uL Hgb 7.6 L (14.0-18.0) g/dL Hct 25.5 L (42-52) % MCV 84.4 (80-100) fL MCH 25.2 (25-34) pg MCHC 29.8 L (32-36) g/dL RDW Std Deviation 50.6 H (36.4-46.3) fL RDW Coeff of Emely 17.3 H (11.5-14.5) % Plt Count 279 (130-400) K/uL MPV 8.3 (7.4-10.4) fL Immature Gran % (Auto) 0.7 % Neut % (Auto) 76.4 % Lymph % (Auto) 12.3 % Fajardo % (Auto) 7.7 % Eos % (Auto) 2.8 % Baso % (Auto) 0.1 % Immature Gran # (Auto) 0.06 H (0.00-0.02) K/uL Neut # (Auto) 6.26 (1.4-6.5) K/uL Lymph # (Auto) 1.01 L (1.2-3.4) K/uL Fajardo # (Auto) 0.63 H (0.11-0.59) K/uL Eos # (Auto) 0.23 (0-0.5) K/uL Baso # (Auto) 0.01 (0-0.2) K/uL Hypochromasia Present PT 9.9 (9.0-12.0) Seconds INR 1.0 (0.9-1.1) APTT 40.4 H (21.0-31.0) Seconds PTT Ratio 1.5 Sodium 139 (136-145) mmol/L Potassium 4.4 (3.5-5.1) mmol/L Chloride 106 (98-107) mmol/L Carbon Dioxide 29 (21-32) mmol/L Anion Gap 4.0 (3-11) BUN 26 H (7-18) mg/dl Creatinine 0.73 (0.6-1.4) mg/dl Est Cr Clr Drug Dosing 117.9 ml/min Est GFR ( Amer) 108.9 Est GFR (Non-Af Amer) 94.0 BUN/Creatinine Ratio 35.4 H (10-20) Glucose 95 (70-99) mg/dl Calcium 8.6 (8.5-10.1) mg/dl Total Bilirubin 0.9 (0.2-1) mg/dl AST 19 (15-37) U/L ALT 13 (12-78) U/L Alkaline Phosphatase 110 (45-117) U/L Total Protein 7.7 (6.4-8.2) gm/dl Albumin 2.8 L (3.4-5.0) gm/dl Globulin 4.9 H (2.5-4.0) gm/dl Albumin/Globulin Ratio 0.6 L (0.9-2) Imaging Data Radiologist's Impression: Radiology results as stated below per my review and the radiologist's interpretation: CT SCAN OF THE RIGHT HUMERUS WITH IV CONTRAST CLINICAL HISTORY: Increasing right upper extremity swelling. COMPARISON STUDY: Abdominal CT dated 04/07/2019. TECHNIQUE: Following the IV administration of 94 cc of Optiray 320, CT scan of the right humerus is performed from the shoulder to the elbow. Images are reviewed in the axial, sagittal, and coronal planes. IV contrast was administered without complication. A dose lowering technique was utilized adhering to the principles of ALARA. Note that interpretation is suboptimal without plain film correlate. CT DOSE: 1605.73 mGy.cm FINDINGS: The skeletal structures are osteopenic. There is no evidence of right humeral fracture. The shoulder and elbow joints are grossly maintained noting degenerative change. No lytic or blastic lesion is seen. There is diffuse superficial and deep soft tissue edema identified in the right upper extremity which extends to the right axilla. There is a multiloculated complex fluid collection identified within the biceps muscle at the level of the mid to distal humeral shaft. This measures approximately 13.5 x 6 x 4 cm in aggregate dimension. Small foci of active extravasation are identified within this collection on axial image #342. No additional organized fluid collection is identified. The right brachial artery appears patent. The partially imaged right-sided ribs appear intact. Partially imaged right lung parenchyma appears clear noting scattered calcified granulomas. The gallbladder is partially visualized in the right upper quadrant. The gallbladder is distended and there are calcified gallstones. Peripherally calcified renal lesions/cysts are again noted an similar to previous. There is no right axillary adenopathy. IMPRESSION: 1. No acute bony abnormality is seen involving the right humerus. 2. There is a large complex intramuscular collection identified within the biceps. The appearance is typical for an intramuscular hematoma and active extravasation is identified at the time of examination. 3. Superficial and deep soft tissue edema is present throughout the right upper extremity. 4. Cholelithiasis. Electronically signed by: Jimmy Lunsford M.D. 06/09/2019 1:45 PM Blood Pressure Blood Pressure Findings: Elevated blood pressure Blood Pressure Disposition: further management by hospitalist EWA Narrative Patient is a 68-year-old male with a past medical history of extensive clotting disorder who presents the ER for 2 days worth of swelling of his right mid humerus. On exam the anterior compartment is firm but is not taut. Radial pulses is intact. Not consistent with compartment syndrome at this time. Patient is on Lovenox which he takes twice a day 80 units. IV was established blood work was obtained and shows no significant leukocytosis. Anemia at 7.6 down from a baseline of 8.5. INR was normal. PTT was elevated at 40. Last dose was about 6 hours ago. BMP along with LFTs bilirubin was unremarkable. CT of the right forearm shows active extravasation. With this finding and the swelling in his biceps and the elevated PTT patient was given IV protamine for reversal. Risk and benefits were explained. Patient was updated bedside. Discussed with hospitalist and patient was admitted for further work-up monitoring of the active extravasation into his biceps. Impression & Plan Extravasation of blood, Paraplegia, Hematoma, Anticoagulation adequate Discharge Plan Visit Data *Final* Discharge Date/Time: 06/09/19 15:35 Chief Complaint: Swelling/Edema to Extremity Stated Complaint: SWELLING TO R ARM ED Provider: Arley Abraham Discharge Problem: Extravasation of blood, Paraplegia, Hematoma, Anticoagulation adequate Patient Disposition: Admitted As Inpatient Discharge Instructions Interventions: ED Discharge Assessment Last Done: 06/09/19 15:35 The scribe's documentation has been prepared under my direction and personally reviewed by me in its entirety. I confirm that the note above accurately reflects all work, treatment, procedures, and medical decision making performed by me.
[2019-06-09] MEDS: OXYCODONE/ACETAMINOPHEN 5mg/325mg TAB PO PRN (19:46)
[2019-06-10] MEDS: OXYCODONE/ACETAMINOPHEN 5mg/325mg TAB PO PRN ×4 (03:31→21:38)
[2019-06-10 06:51] LABS: Hematocrit (blood only) 23.7 % (42-52); Hemoglobin 7.3 g/dL (14.0-18.0); Mean Corpuscular Hemoglobin 25.9 pg (25-34); Mean Corpuscular Hgb Conc 30.8 g/dL (32-36); Mean Platelet Volume 8.4 fL (7.4-10.4); Platelet Count 278 K/uL (130-400); RDW Coefficient of Variation 17.4 % (11.5-14.5); Red Blood Count 2.82 M/uL (4.7-6.1); White Blood Count 7.57 K/uL (4.8-10.8)
[2019-06-10 07:20] LABS: BUN Creatinine Ratio 31.9 (10-20); Calcium 8.3 mg/dl (8.5-10.1); Creatinine Clr Calc Pharmacy 114.6 ml/min; Est GFR (African American) 107.7; Est GFR (Non-African American) 92.9; Potassium 4.4 mmol/L (3.5-5.1)
[2019-06-10] MEDS: CYANOCOBALAMIN (VITAMIN B-12) 2,500 MCG TAB.SUBL SL SCH (08:12)
[2019-06-10] MEDS: ASCORBIC ACID 500 MG TAB PO SCH (08:12)
[2019-06-10] MEDS ORDERED: SODIUM CHLORIDE 0.9% 250 ML IV PRN (09:58)
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
[2019-06-11] MEDS: OXYCODONE/ACETAMINOPHEN 5mg/325mg TAB PO PRN ×2 (04:47→10:31)
[2019-06-11 06:29] LABS: Basophils # (auto) 0.02 K/uL (0-0.2); Basophils % (auto) 0.2 %; Eosinophils # (auto) 0.26 K/uL (0-0.5); Eosinophils % (auto) 2.9 %; Hematocrit (blood only) 25.9 % (42-52); Hemoglobin 8.2 g/dL (14.0-18.0); Immature Granulocytes # (auto) 0.06 K/uL (0.00-0.02); Immature Granulocytes % (auto) 0.7 %; Lymphocytes # (auto) 1.19 K/uL (1.2-3.4); Lymphocytes % (auto) 13.1 %; Mean Corpuscular Hemoglobin 26.5 pg (25-34); Mean Corpuscular Hgb Conc 31.7 g/dL (32-36); Mean Corpuscular Volume 83.5 fL (80-100); Monocytes # (auto) 0.88 K/uL (0.11-0.59); Monocytes % (auto) 9.7 %; Neutrophils # (auto) 6.69 K/uL (1.4-6.5); Neutrophils % (auto) 73.4 %; Platelet Count 248 K/uL (130-400); RDW Coefficient of Variation 16.6 % (11.5-14.5); RDW Standard Deviation 49.2 fL (36.4-46.3)
[2019-06-11 07:07] LABS: BUN Creatinine Ratio 29.8 (10-20); Calcium 8.2 mg/dl (8.5-10.1); Creatinine Clr Calc Pharmacy 103.5 ml/min; Est GFR (African American) 103.3; Est GFR (Non-African American) 89.2; Potassium 4.2 mmol/L (3.5-5.1)
[2019-06-11] MEDS: ASCORBIC ACID 500 MG TAB PO SCH (08:21)
[2019-06-11] MEDS: CYANOCOBALAMIN (VITAMIN B-12) 2,500 MCG TAB.SUBL SL SCH (08:21)
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
--- NOTE | 2019-06-11 16:54 | Hematology/Oncology Prog Note ---
Date of Service June 11, 2019 Assessment & Plan (1) Hematoma: He has an intramuscular hematoma in his right bicep that appears to be the result of an injury while on anticoagulation. The bleeding seems to have subsided, but I would like his arm to be evaluated by orthopedics prior to res uming anticoagulation. I made this recommendation clear to him when we met in the morning. He will need to be put back on anticoagulation quickly, as his large burden of thrombus is worrisome for a PE, which he has already had. However, we need to make sure he does not develop a more serious hemorrhage in his arm. I might even consider restarting blood thinners in a supervised setting prior to his leaving. Present on Admission?: Yes (2) Renal mass: He is scheduled for a biopsy of his kidney mass next week. We will make arrangements for anticancer therapy once we know the pathology of his disease. Present on Admission?: Yes Subjective I saw Mr. Will this morning. His arm was less sore and had not increased in size from the weekend. He denied any abnormal bleeding or bruising elsewhere. He also denied any shortness of breath, chest pain, or palpitations. Review of Systems Eyes: no worsening vision Ear, Nose, Mouth, Throat: no epistaxis and no bleeding gums Respiratory: no cough and no dyspnea Cardiovascular: no chest pain and no palpitations Gastrointestinal: no abdominal pain and no blood in stools Genitourinary: no hematuria Musculoskeletal: Improved pain in his RUE Neurologic: no headache(s) Physical Exam 2 Constitutional: comfortable; no acute distress Eyes: + anicteric sclerae ENMT: external ear and nose normal, oropharynx normal Respiratory: normal respiratory effort, lungs clear to auscultation Cardiovascular: RRR, no murmur, no edema Gastrointestinal (Abdomen): Inspection/Auscultation: normal bowel sounds; abdomen not distended Percussion/Palpation: abdomen soft; abdomen nontender Musculoskeletal: His RUE was dark colored from his large hematoma but was soft and warm Psychiatric: A+Ox3, euthymic affect Lymphatic: no cervical or axillary lymphadenopathy Results & Data Vital Signs (Past 12 Hours) Vital Signs Temp Pulse Pulse Resp BP Pulse Ox 06/11/19 11:43 36.7 C 74 19 94/55 L 96 06/11/19 11:32 36.7 C 74 19 94/55 L 96 06/11/19 10:06 68 11/25/19 07:07 36.9 C 71 19 96/62 L 94 Laboratory Results Abnormal lab results 06/10/19 06/11/19 06/11/19 Range/Units 10:04 06:11 06:11 RBC 3.10 L (4.7-6.1) M/uL Hgb 8.2 L (14.0-18.0) g/dL Hct 25.9 L (42-52) % MCHC 31.7 L (32-36) g/dL RDW Std Deviation 49.2 H (36.4-46.3) fL RDW Coeff of Emely 16.6 H (11.5-14.5) % Immature Gran # (Auto) 0.06 H (0.00-0.02) K/uL Neut # (Auto) 6.69 H (1.4-6.5) K/uL Lymph # (Auto) 1.19 L (1.2-3.4) K/uL [place] # (Auto) 0.88 H (0.11-0.59) K/uL BUN 25 H (7-18) mg/dl BUN/Creatinine Ratio 29.8 H (10-20) Calcium 8.2 L (8.5-10.1) mg/dl Crossmatch See Detail Diagnostic Findings CT Humerus, 06/09/19: IMPRESSION: 1. No acute bony abnormality is seen involving the right humerus. 2. There is a large complex intramuscular collection identified within the biceps. The appearance is typical for an intramuscular hematoma and active extravasation is identified at the time of examination. 3. Superficial and deep soft tissue edema is present throughout the right upper extremity. 4. Cholelithiasis.
== END 2019-06-11 12:46 | disposition home health service (06) | DRG 604 ==
LOC: ED 12:04 → SUATTDRO 14:39 → 2S 14:39

== ENCOUNTER 2022-01-01 16:51 | Inpatient (IN) ==
[2022-01-01 20:01] LABS: Basophils # (auto) 0.03 K/uL (0-0.2); Basophils % (auto) 0.2 %; Eosinophils # (auto) 0.46 K/uL (0-0.5); Eosinophils % (auto) 3.7 %; Hematocrit (blood only) 34.2 % (42-52); Hemoglobin 10.3 g/dL (14.0-18.0); Immature Granulocytes # (auto) 0.04 K/uL (0.00-0.02); Immature Granulocytes % (auto) 0.3 %; Lymphocytes % (auto) 12.1 %; Mean Corpuscular Hemoglobin 22.4 pg (25-34); Mean Corpuscular Hgb Conc 30.1 g/dL (32-36); Mean Corpuscular Volume 74.5 fL (80-100); Mean Platelet Volume 8.3 fL (7.4-10.4); Monocytes # (auto) 1.07 K/uL (0.11-0.59); Monocytes % (auto) 8.6 %; Neutrophils # (auto) 9.31 K/uL (1.4-6.5); Neutrophils % (auto) 75.1 %; Platelet Count 543 K/uL (130-400); RDW Coefficient of Variation 16.7 % (11.5-14.5); RDW Standard Deviation 45.3 fL (36.4-46.3); Red Blood Count 4.59 M/uL (4.7-6.1); White Blood Count 12.41 K/uL (4.8-10.8)
[2022-01-01 20:17] LABS: Alanine Aminotransferase 5 U/L (7-52); Albumin Globulin Ratio 0.6 (0.9-2); Albumin Level 3.2 gm/dl (3.4-5.0); Alkaline Phosphatase 167 U/L (34-104); Anion Gap 8 (3-11); Aspartate Aminotransferase 9 U/L (13-39); BUN Creatinine Ratio 13.2 (10-20); Bilirubin,Total 0.7 mg/dl (0.2-1.0); Blood Urea Nitrogen 23 mg/dl (6-23); Calcium 8.5 mg/dl (8.5-10.1); Carbon Dioxide 24 mmol/L (21-32); Chloride 102 mmol/L (98-107); Est GFR (African American) 44.1 ml/min; Est GFR (Non-African American) 38.1 ml/min; Glucose 108 mg/dl (70-99(Fasting)); Magnesium 2.1 mg/dl (1.7-2.4); Potassium 4.6 mmol/L (3.5-5.1); Sodium 134 mmol/L (136-145); Total Protein 8.2 gm/dl (6.0-8.3)
[2022-01-01 20:24] LABS: Hypochromasia Present
[2022-01-01] MEDS ORDERED: SODIUM CHLORIDE 0.9% 500 ML IV ONE (21:01)
[2022-01-01] MEDS ORDERED: SODIUM CHLORIDE 0.9% 1000ML 1,000 ML IV SCH (21:15)
[2022-01-01 21:34] LABS: Appearance Urine Cloudy (Clear); Bacteria Urine Automated 4+ (Negative); Bilirubin Urine Negative (Negative); Blood Urine Trace (Negative); Color Urine Dark Yellow; Glucose Urine UA Negative (Negative); Ketones Urine Negative (Negative); Leukocyte Esterase Urine 2+ (Negative); Nitrite Urine Negative (Negative); Protein Urine 1+ (Negative); RBC Urine Automated 0-4 /hpf (0-4); Specific Gravity Urine 1.019 (1.000-1.030); Urobilinogen Urine Negative (Negative); WBC Urine Automated >30 /hpf (0-5); pH Urine 5.5 (4.5-7.5)
[2022-01-01] MEDS ORDERED: PIPERACILLIN/TAZOBACTAM 4.5 GM/120 ML BAG IV ONE (22:03)
[2022-01-01 23:36] LABS: Influenza A virus by PCR Negative (Neg); Influenza B virus by PCR Negative (Neg); RSV by PCR Negative (Neg)
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
[2022-01-01 23:50] LABS: SARS CoV2 RNA(COVID-19) InHosp POSITIVE (Negative)
--- NOTE | 2022-01-02 01:22 | Emergency Department Note ---
Impression & Plan Acute UTI, Decubitus ulcer, stage IV, Multiple sclerosis ED Provider Note CHIEF COMPLAINT: Generalized weakness, paraplegia, MS, pressure sores HISTORY OF PRESENT ILLNESS: This 71-year-old male patient presents to the emergency department and present to the emergency department with complaints of generalized weakness. Patient is a paraplegic with a diagnosis of MS. He is largely wheelchair-bound and cared for by his . The patient suffers multiple pressure wounds to the lateral knees and ankles secondary to his frog- leg positioning. Patient denies any fevers, chills, chest pain or shortness of breath but does admit to some nausea and decreased appetite. He self catheterizes and does have a remote history of Pseudomonas infection. REVIEW OF SYSTEMS: A review of systems was performed with positives and pertinent negatives listed in the history of present illness. 10 systems were reviewed and are otherwise negative. ALLERGIES: see below MEDICATIONS: see below PMH: see below SOCIAL HISTORY: see below DDx: Infection, dehydration, metabolic abnormality, hypo/hyperglycemia, electrolyte disturbance, anemia, hypoxia, cardiac sources, intracerebral event, toxicologic, neurologic, as well as other pathologies. PHYSICAL EXAM: Vital signs reviewed. General: Chronically ill-appearing 71-year-old male, in no significant distress. HEENT: No scleral icterus, PERRLA, neck supple. Atraumatic. Cardiovascular: Regular rate and rhythm, no extra sounds. Pulmonary: Clear to auscultation bilaterally, normal work of breathing. Abdomen: Soft, nontender, nondistended, positive bowel sounds. Musculoskeletal: Atrophic bilateral lower extremities with contractures. Large 5 cm decubitus ulcers to the lateral knees and right greater than left ankle bilaterally. Small hematoma was noted to the distal toes bilaterally. Neurologic: Patient awake alert and oriented x 3, speech is clear Skin: Warm, dry, no rash EMERGENCY DEPARTMENT COURSE/MDM: Patient was evaluated and appeared to be in no significant distress. IV access was obtained and laboratory work was drawn. UA was obtained and positive for UTI. This will be sent for culture. Patient was medicated with IV Zosyn 4.5 g. Patient has also tested positive for COVID-19. He was hydrated with normal saline solution. Given the patient's inability to care for self, decreased p.o. intake, multiple decubitus ulcers and MS, patient will be evaluated by the hospitalist service for admission and further manag ement. MONITORING: An order for cardiac monitoring was placed and the patient is noted to be in a normal sinus rhythm at 76 beats per minute. 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 Family History Other Family history non-contributory Social History Smoking Status: Never smoker Second Hand Exposure: No; Hx Alcohol Use: No Hx Substance Use: No Preferred Language: Burundian Communication Ability: Effective Key Account Representative Required: No Beliefs That Will Affect Care: None marital status: Current Living Situation: Spouse Feels Safe at Home: Yes Assistive Devices: Allergies Allergies Allergy/AdvReac Type Severity Reaction Status Date / Time No Known Allergies Allergy Verified 01/01/22 20:23 Home Meds Home Medications Medication Instructions Recorded Confirmed ascorbic acid (vitamin C) 500 mg 500 mg PO QAM 04/06/19 01/01/22 tablet (Vitamin C) cyanocobalamin (B12)-cobamamide 1 tab SUBLINGUAL QAM 04/06/19 01/01/22 5,000 mcg-100 mcg sublingual tablet (B-12 Plus) sulfamethoxazole 800 1 tab PO BID PRN 01/01/22 01/01/22 mg-trimethoprim 160 mg tablet Results & Data (ED) Vital Signs Vital Signs - 24 hr 01/01/22 17:20 01/01/22 19:50 Temperature 36.5 C Temperature Source Oral Pulse Rate 88 Pulse Rate [Left Finger] 76 Pulse Rhythm Regular Pulse Strength Normal Respiratory Rate 18 20 Respiratory Effort / Characteristics Non-Labored Spontaneous Non-Labored Respiratory Depth Normal Normal Respiratory Pattern Regular Blood Pressure 120/81 Blood Pressure [Left Arm] 126/88 Blood Pressure Mean 94 Blood Pressure Mean [Left Arm] 100 Blood Pressure Position Sitting Pulse Oximetry 97 96 Oxygen Delivery Method Room Air Room Air Sepsis Recent Fever Within 48 Hours No Sepsis New/Unexplained Change in Mental Status No Sepsis Action Taken by Nursing No Action Required Home Medications Current Medication List: was personally reviewed by me Laboratory Data Attestation: I reviewed the patient's lab results. Result diagrams: 01/03/22 07:00 01/03/22 07:00 Lab Results 01/01/22 01/01/22 01/01/22 Range/Units 18:16 18:16 21:05 WBC 12.41 H (4.8-10.8) K/uL RBC 4.59 L (4.7-6.1) M/uL Hgb 10.3 L (14.0-18.0) g/dL Hct 34.2 L (42-52) % MCV 74.5 L (80-100) fL MCH 22.4 L (25-34) pg MCHC 30.1 L (32-36) g/dL RDW Std Deviation 45.3 (36.4-46.3) fL RDW Coeff of Emely 16.7 H (11.5-14.5) % Plt Count 543 H (130-400) K/uL MPV 8.3 (7.4-10.4) fL Immature Gran % (Auto) 0.3 % Neut % (Auto) 75.1 % Lymph % (Auto) 12.1 % [place] % (Auto) 8.6 % Eos % (Auto) 3.7 % Baso % (Auto) 0.2 % Neut # (Auto) 9.31 H (1.4-6.5) K/uL Lymph # (Auto) 1.50 (1.2-3.4) K/uL [place] # (Auto) 1.07 H (0.11-0.59) K/uL Eos # (Auto) 0.46 (0-0.5) K/uL Baso # (Auto) 0.03 (0-0.2) K/uL Immature Gran # (Auto) 0.04 H (0.00-0.02) K/uL Hypochromasia Present Sodium 134 L (136-145) mmol/L Potassium 4.6 (3.5-5.1) mmol/L Chloride 102 (98-107) mmol/L Carbon Dioxide 24 (21-32) mmol/L Anion Gap 8 (3-11) BUN 23 (6-23) mg/dl Creatinine 1.74 H (0.6-1.4) mg/dl Est Cr Clr Drug Dosing Not Reportable Est GFR ( Amer) 44.1 ml/min Est GFR (Non-Af Amer) 38.1 ml/min BUN/Creatinine Ratio 13.2 (10-20) Glucose 108 H (70-99(Fasting)) mg/dl Calcium 8.5 (8.5-10.1) mg/dl Magnesium 2.1 (1.7-2.4) mg/dl Total Bilirubin 0.7 (0.2-1.0) mg/dl AST 9 L (13-39) U/L ALT 5 L (7-52) U/L Alkaline Phosphatase 167 H (34-104) U/L Total Protein 8.2 (6.0-8.3) gm/dl Albumin 3.2 L (3.4-5.0) gm/dl Globulin 5.0 H (2.5-4.0) gm/dl Albumin/Globulin Ratio 0.6 L (0.9-2) Urine Color Dark Yellow Urine Appearance Cloudy A (Clear) Urine pH 5.5 (4.5-7.5) Ur Specific [place] 1.019 (1.000-1.030) Urine Protein 1+ H (Negative) Urine Glucose (UA) Negative (Negative) Urine Ketones Negative (Negative) Urine Blood Trace H (Negative) Urine Nitrite Negative (Negative) Urine Bilirubin Negative (Negative) Urine Urobilinogen Negative (Negative) Ur Leukocyte Esterase 2+ H (Negative) Urine WBC (Auto) >30 H (0-5) /hpf Urine RBC (Auto) 0-4 (0-4) /hpf U Hyaline Cast (Auto) 5-10 H (0-5) /lpf U Epithel Cells (Auto) 10-20 H (0-5) /lpf Urine Bacteria (Auto) 4+ H (Negative) WBC Casts 5-10 H (0) /lpf SARS-CoV-2 (PCR) (Negative) Influenza Type A (PCR) (Neg) Influenza Type B (PCR) (Neg) RSV (RT-PCR) (Neg) 01/01/22 Range/Units 22:40 WBC (4.8-10.8) K/uL RBC (4.7-6.1) M/uL Hgb (14.0-18.0) g/dL Hct (42-52) % MCV (80-100) fL MCH (25-34) pg MCHC (32-36) g/dL RDW Std Deviation (36.4-46.3) fL RDW Coeff of Emely (11.5-14.5) % Plt Count (130-400) K/uL MPV (7.4-10.4) fL Immature Gran % (Auto) % Neut % (Auto) % Lymph % (Auto) % [place] % (Auto) % Eos % (Auto) % Baso % (Auto) % Neut # (Auto) (1.4-6.5) K/uL Lymph # (Auto) (1.2-3.4) K/uL [place] # (Auto) (0.11-0.59) K/uL Eos # (Auto) (0-0.5) K/uL Baso # (Auto) (0-0.2) K/uL Immature Gran # (Auto) (0.00-0.02) K/uL Hypochromasia Sodium (136-145) mmol/L Potassium (3.5-5.1) mmol/L Chloride (98-107) mmol/L Carbon Dioxide (21-32) mmol/L Anion Gap (3-11) BUN (6-23) mg/dl Creatinine (0.6-1.4) mg/dl Est Cr Clr Drug Dosing Est GFR ( Amer) ml/min Est GFR (Non-Af Amer) ml/min BUN/Creatinine Ratio (10-20) Glucose (70-99(Fasting)) mg/dl Calcium (8.5-10.1) mg/dl Magnesium (1.7-2.4) mg/dl Total Bilirubin (0.2-1.0) mg/dl AST (13-39) U/L ALT (7-52) U/L Alkaline Phosphatase (34-104) U/L Total Protein (6.0-8.3) gm/dl Albumin (3.4-5.0) gm/dl Globulin (2.5-4.0) gm/dl Albumin/Globulin Ratio (0.9-2) Urine Color Urine Appearance (Clear) Urine pH (4.5-7.5) Ur Specific [place] (1.000-1.030) Urine Protein (Negative) Urine Glucose (UA) (Negative) Urine Ketones (Negative) Urine Blood (Negative) Urine Nitrite (Negative) Urine Bilirubin (Negative) Urine Urobilinogen (Negative) Ur Leukocyte Esterase (Negative) Urine WBC (Auto) (0-5) /hpf Urine RBC (Auto) (0-4) /hpf U Hyaline Cast (Auto) (0-5) /lpf U Epithel Cells (Auto) (0-5) /lpf Urine Bacteria (Auto) (Negative) WBC Casts (0) /lpf SARS-CoV-2 (PCR) POSITIVE A* (Negative) Influenza Type A (PCR) Negative (Neg) Influenza Type B (PCR) Negative (Neg) RSV (RT-PCR) Negative (Neg) Administered Medications Acetaminophen (Acetaminophen 325 Mg Tab) 650 mg PO Q4H PRN PRN Reason: pain/fever Stop: 02/01/22 02:16 Last Admin: 01/03/22 15:12 Dose: 650 mg Documented by: [id number] Admin: 01/03/22 00:03 Dose: 650 mg Documented by: [id number] Admin: 01/02/22 13:31 Dose: 650 mg Documented by: [id number] Admin: 01/02/22 03:20 Dose: 650 mg Documented by: [id number] Ascorbic Acid (Ascorbic Acid 500 Mg Tab) [facility] Stop: 02/01/22 08:59 Last Admin: 01/03/22 07:56 Dose: 500 mg Documented by: [id number] Admin: 01/02/22 07:55 Dose: 500 mg Documented by: [id number] Enoxaparin Sodium (Enoxaparin Inj 40 Mg/0.4 Ml Syr) 40 [facility] Stop: 02/01/22 08:59 Last Admin: 01/03/22 07:56 Dose: 40 mg Documented by: [id number] Admin: 01/02/22 07:55 Dose: 40 mg Documented by: [id number] Piperacillin Sod/Tazobactam (Sod 4.5 gm/ Dextrose) 120 mls @ 30 mls/hr IV Q8H [facility]; Protocol Stop: 01/09/22 03:59 Last Infusion: 01/03/22 16:39 Dose: 0 mls/hr Documented by: [id number] Admin: 01/03/22 12:57 Dose: 30 mls/hr Documented by: [id number] Infusion: 01/03/22 07:52 Dose: 0 mls/hr Documented by: [id number] Admin: 01/03/22 03:55 Dose: 30 mls/hr Documented by: [id number] Infusion: 01/02/22 23:46 Dose: 0 mls/hr Documented by: [id number] Admin: 01/02/22 19:52 Dose: 30 mls/hr Documented by: [id number] Infusion: 01/02/22 17:36 Dose: 0 mls/hr Documented by: [id number] Admin: 01/02/22 13:30 Dose: 30 mls/hr Documented by: [id number] Infusion: 01/02/22 07:54 Dose: 0 mls/hr Documented by: [id number] Infusion: 01/02/22 06:28 Dose: 30 mls/hr Documented by: [id number] Admin: 01/02/22 03:21 Dose: 30 mls/hr Documented by: [id number] Discontinued Medications Sodium Chloride (Nss) 500 mls @ 999 mls/hr IV .Q31M ONE Stop: 01/01/22 21:31 Last Infusion: 01/01/22 22:10 Dose: 0 mls/hr Documented by: [id number] Admin: 01/01/22 21:35 Dose: 999 mls/hr Documented by: [id number] Sodium Chloride (Nss 1000ml) 1,000 mls @ 125 mls/hr IV .Q8H [facility] Stop: 01/31/22 21:14 Last Infusion: 01/02/22 02:00 Dose: 0 mls/hr Documented by: [id number] Admin: 01/01/22 22:07 Dose: 125 mls/hr Documented by: [id number] Piperacillin Sod/Tazobactam Sod (Zosyn) 4.5 gm in 120 mls @ 240 mls/hr IV NOW ONE Stop: 01/01/22 22:32 Last Infusion: 01/02/22 02:00 Dose: 0 mls/hr Documented by: [id number] Admin: 01/01/22 22:07 Dose: 240 mls/hr Documented by: [id number] Lactated Ringer's (Lr) 1,000 mls @ 125 mls/hr IV .Q8H [facility] Stop: 01/02/22 18:16 Last Infusion: 01/02/22 16:08 Dose: 0 mls/hr Documented by: [id number] Admin: 01/02/22 09:09 Dose: 125 mls/hr Documented by: [id number] Infusion: 01/02/22 09:09 Dose: 125 mls/hr Documented by: [id number] Infusion: 01/02/22 06:28 Dose: 125 mls/hr Documented by: [id number] Admin: 01/02/22 03:19 Dose: 125 mls/hr Documented by: [id number] Daptomycin 350 mg/ Syringe 7 mls @ 3.5 mls/min IV Q24H [facility]; Protocol Stop: 01/09/22 02:59 Last Admin: 01/03/22 03:49 Dose: 3.5 mls/min Documented by: [id number] Admin: 01/02/22 03:21 Dose: 3.5 mls/min Documented by: [id number] Blood Pressure Blood Pressure Findings: Normal blood pressure Blood Pressure Disposition: did not require urgent referral Discharge Plan Visit Data Chief Complaint: Illness Stated Complaint: VOMITING, WOUNDS ED Provider: Moni Agosto Discharge Problem: Acute UTI, Decubitus ulcer, stage IV, Multiple sclerosis Patient Disposition: Admitted As Inpatient Discharge Instructions Interventions: ED Discharge Assessment Last Done: 01/02/22 02:05 Discharge Problem: Decubitus ulcer, stage IV Qualifiers: Pressure injury location: other site Qualified Code(s): L89.894 - Pressure ulcer of other site, stage 4
[2022-01-02] MEDS ORDERED: ONDANSETRON INJ 2 MG/ML 2 ML VIAL IV PRN (02:17)
[2022-01-02] MEDS: LACTATED RINGER'S 1,000 ML IV SCH ×2 (03:19→09:09)
[2022-01-02] MEDS: ACETAMINOPHEN 325 MG TAB PO PRN ×2 (03:20→13:31)
[2022-01-02] MEDS: DAPTOmycin 350 MG in SYRINGE 0 ML IV SCH (03:21)
[2022-01-02] MEDS: PIPERACILLIN/TAZOBACTAM 4.5 GM in DEXTROSE 5% 100 ML IV SCH ×3 (03:21→19:52)
[2022-01-02 04:33] LABS: Basophils # (auto) 0.01 K/uL (0-0.2); Basophils % (auto) 0.1 %; Eosinophils # (auto) 0.34 K/uL (0-0.5); Eosinophils % (auto) 3.2 %; Hematocrit (blood only) 32.1 % (42-52); Hemoglobin 9.3 g/dL (14.0-18.0); Immature Granulocytes # (auto) 0.05 K/uL (0.00-0.02); Immature Granulocytes % (auto) 0.5 %; Lymphocytes # (auto) 1.04 K/uL (1.2-3.4); Lymphocytes % (auto) 9.8 %; Mean Corpuscular Hemoglobin 21.3 pg (25-34); Mean Corpuscular Volume 73.5 fL (80-100); Mean Platelet Volume 8.2 fL (7.4-10.4); Monocytes # (auto) 0.86 K/uL (0.11-0.59); Monocytes % (auto) 8.1 %; Neutrophils # (auto) 8.36 K/uL (1.4-6.5); Neutrophils % (auto) 78.3 %; Platelet Count 428 K/uL (130-400); RDW Coefficient of Variation 16.7 % (11.5-14.5); RDW Standard Deviation 44.7 fL (36.4-46.3); Red Blood Count 4.37 M/uL (4.7-6.1); White Blood Count 10.66 K/uL (4.8-10.8)
[2022-01-02 04:45] LABS: Est GFR (African American) 49.6 ml/min; Est GFR (Non-African American) 42.8 ml/min; Potassium 4.1 mmol/L (3.5-5.1)
[2022-01-02 04:46] LABS: Albumin Level 2.8 gm/dl (3.4-5.0); BUN Creatinine Ratio 14.6 (10-20); Bilirubin Direct 0.1 mg/dl (0-0.2); Bilirubin,Total 0.7 mg/dl (0.2-1.0); Calcium 7.9 mg/dl (8.5-10.1); Total Protein 6.9 gm/dl (6.0-8.3)
[2022-01-02 05:06] LABS: Hypochromasia Present
[2022-01-02 06:24] LABS: Appearance Urine Cloudy (Clear); Bacteria Urine Automated Negative (Negative); Bilirubin Urine Negative (Negative); Blood Urine Trace (Negative); Color Urine Yellow; Epithelial Cell Urine Auto >30 /lpf (0-5); Glucose Urine UA Negative (Negative); Ketones Urine Negative (Negative); Leukocyte Esterase Urine 2+ (Negative); Nitrite Urine Positive (Negative); Protein Urine 1+ (Negative); RBC Urine Automated 0-4 /hpf (0-4); Specific Gravity Urine 1.019 (1.000-1.030); Urobilinogen Urine Negative (Negative); WBC Urine Automated >30 /hpf (0-5)
[2022-01-02] MEDS: ENOXAPARIN INJ 40 MG/0.4 ML SYR SQ SCH (07:55)
[2022-01-02] MEDS: ASCORBIC ACID 500 MG TAB PO SCH (07:55)
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
[2022-01-03] MEDS: ACETAMINOPHEN 325 MG TAB PO PRN ×3 (00:03→23:29)
[2022-01-03] MEDS: DAPTOmycin 350 MG in SYRINGE 0 ML IV SCH (03:49)
[2022-01-03] MEDS: PIPERACILLIN/TAZOBACTAM 4.5 GM in DEXTROSE 5% 100 ML IV SCH ×3 (03:55→20:10)
[2022-01-03] MEDS: ENOXAPARIN INJ 40 MG/0.4 ML SYR SQ SCH (07:56)
[2022-01-03] MEDS: ASCORBIC ACID 500 MG TAB PO SCH (07:56)
[2022-01-03 08:27] LABS: Hematocrit (blood only) 29.8 % (42-52); Hemoglobin 8.5 g/dL (14.0-18.0); Mean Corpuscular Hemoglobin 21.3 pg (25-34); Mean Corpuscular Hgb Conc 28.5 g/dL (32-36); Mean Corpuscular Volume 74.7 fL (80-100); Mean Platelet Volume 8.4 fL (7.4-10.4); Platelet Count 356 K/uL (130-400); RDW Coefficient of Variation 16.7 % (11.5-14.5); RDW Standard Deviation 46.1 fL (36.4-46.3); Red Blood Count 3.99 M/uL (4.7-6.1); White Blood Count 8.51 K/uL (4.8-10.8)
[2022-01-03 08:47] LABS: Albumin Globulin Ratio 0.7 (0.9-2); Albumin Level 2.6 gm/dl (3.4-5.0); BUN Creatinine Ratio 17.7 (10-20); Bilirubin,Total 0.5 mg/dl (0.2-1.0); Calcium 7.8 mg/dl (8.5-10.1); Creatinine Clr Calc Pharmacy 66.2 ml/min; Est GFR (African American) 66.4 ml/min; Est GFR (Non-African American) 57.3 ml/min; Globulin 3.7 gm/dl (2.5-4.0); Magnesium 1.9 mg/dl (1.7-2.4); Potassium 4.3 mmol/L (3.5-5.1); Total Protein 6.3 gm/dl (6.0-8.3)
[2022-01-03 09:27] LABS: Basophils # (auto) 0.01 K/uL (0-0.2); Basophils % (auto) 0.1 %; Eosinophils # (auto) 0.59 K/uL (0-0.5); Eosinophils % (auto) 6.9 %; Immature Granulocytes # (auto) 0.05 K/uL (0.00-0.02); Immature Granulocytes % (auto) 0.6 %; Lymphocytes # (auto) 1.16 K/uL (1.2-3.4); Lymphocytes % (auto) 13.6 %; Monocytes # (auto) 0.66 K/uL (0.11-0.59); Monocytes % (auto) 7.8 %; Neutrophils # (auto) 6.04 K/uL (1.4-6.5)
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
[2022-01-03] MEDS: PREGABALIN 75 MG CAP PO SCH (21:36)
[2022-01-04] MEDS: PIPERACILLIN/TAZOBACTAM 4.5 GM in DEXTROSE 5% 100 ML IV SCH ×2 (04:27→12:18)
[2022-01-04 08:57] LABS: Basophils # (auto) 0.03 K/uL (0-0.2); Basophils % (auto) 0.6 %; Eosinophils # (auto) 0.61 K/uL (0-0.5); Eosinophils % (auto) 11.7 %; Hemoglobin 8.6 g/dL (14.0-18.0); Immature Granulocytes # (auto) 0.04 K/uL (0.00-0.02); Immature Granulocytes % (auto) 0.8 %; Lymphocytes # (auto) 1.22 K/uL (1.2-3.4); Lymphocytes % (auto) 23.5 %; Mean Corpuscular Hemoglobin 22.1 pg (25-34); Mean Corpuscular Hgb Conc 29.7 g/dL (32-36); Mean Corpuscular Volume 74.6 fL (80-100); Mean Platelet Volume 8.1 fL (7.4-10.4); Monocytes # (auto) 0.56 K/uL (0.11-0.59); Monocytes % (auto) 10.8 %; Neutrophils # (auto) 2.74 K/uL (1.4-6.5); Neutrophils % (auto) 52.6 %; Platelet Count 370 K/uL (130-400); Potassium 4.2 mmol/L (3.5-5.1); RDW Coefficient of Variation 16.9 % (11.5-14.5); RDW Standard Deviation 45.8 fL (36.4-46.3); Red Blood Count 3.89 M/uL (4.7-6.1)
[2022-01-04 08:58] LABS: BUN Creatinine Ratio 16.4 (10-20); Calcium 7.5 mg/dl (8.5-10.1); Creatinine Clr Calc Pharmacy 70.8 ml/min; Est GFR (Non-African American) 62.1 ml/min
[2022-01-04 09:37] LABS: Microcytosis Present
[2022-01-04] MEDS: PREGABALIN 75 MG CAP PO SCH ×2 (09:53→22:21)
[2022-01-04] MEDS: ASCORBIC ACID 500 MG TAB PO SCH (09:53)
[2022-01-04] MEDS: ENOXAPARIN INJ 40 MG/0.4 ML SYR SQ SCH (09:54)
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
[2022-01-04] MEDS: ERTAPENEM SODIUM 1,000 MG in SYRINGE 0 ML IV SCH (13:43)
[2022-01-05] MEDS: ENOXAPARIN INJ 40 MG/0.4 ML SYR SQ SCH (07:56)
[2022-01-05] MEDS: PREGABALIN 75 MG CAP PO SCH ×2 (07:56→20:21)
[2022-01-05] MEDS: ASCORBIC ACID 500 MG TAB PO SCH (07:56)
[2022-01-05 09:44] LABS: Creatinine Clr Calc Pharmacy 82.9 ml/min; Est GFR (African American) 87.2 ml/min; Est GFR (Non-African American) 75.2 ml/min
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
[2022-01-05] MEDS: ERTAPENEM SODIUM 1,000 MG in SYRINGE 0 ML IV SCH (13:32)
[2022-01-05] MEDS: ACETAMINOPHEN 325 MG TAB PO PRN ×2 (15:45→22:22)
[2022-01-06] MEDS: ENOXAPARIN INJ 40 MG/0.4 ML SYR SQ SCH (07:59)
[2022-01-06] MEDS: ASCORBIC ACID 500 MG TAB PO SCH (07:59)
[2022-01-06] MEDS: PREGABALIN 75 MG CAP PO SCH ×2 (08:04→20:44)
[2022-01-06] MEDS: ACETAMINOPHEN 325 MG TAB PO PRN ×2 (09:45→21:37)
[2022-01-06 11:56] LABS: Hematocrit (blood only) 31.5 % (42-52); Mean Corpuscular Hemoglobin 21.6 pg (25-34); Mean Corpuscular Hgb Conc 28.6 g/dL (32-36); Mean Corpuscular Volume 75.7 fL (80-100); Mean Platelet Volume 8.1 fL (7.4-10.4); Platelet Count 392 K/uL (130-400); RDW Coefficient of Variation 17.2 % (11.5-14.5); RDW Standard Deviation 47.1 fL (36.4-46.3); Red Blood Count 4.16 M/uL (4.7-6.1); White Blood Count 7.88 K/uL (4.8-10.8)
[2022-01-06 12:00] LABS: BUN Creatinine Ratio 19.2 (10-20); Calcium 8.1 mg/dl (8.5-10.1); Creatinine Clr Calc Pharmacy 82.9 ml/min; Est GFR (African American) 87.2 ml/min; Est GFR (Non-African American) 75.2 ml/min; Potassium 4.2 mmol/L (3.5-5.1)
[2022-01-06 12:21] LABS: Basophils # (auto) 0.01 K/uL (0-0.2); Basophils % (auto) 0.1 %; Eosinophils # (auto) 0.56 K/uL (0-0.5); Eosinophils % (auto) 7.1 %; Immature Granulocytes # (auto) 0.04 K/uL (0.00-0.02); Immature Granulocytes % (auto) 0.5 %; Lymphocytes # (auto) 1.48 K/uL (1.2-3.4); Lymphocytes % (auto) 18.8 %; Monocytes # (auto) 0.42 K/uL (0.11-0.59); Monocytes % (auto) 5.3 %; Neutrophils # (auto) 5.37 K/uL (1.4-6.5); Neutrophils % (auto) 68.2 %
[2022-01-06] MEDS: ERTAPENEM SODIUM 1,000 MG in SYRINGE 0 ML IV SCH (13:15)
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
[2022-01-07] MEDS: ENOXAPARIN INJ 40 MG/0.4 ML SYR SQ SCH (09:01)
[2022-01-07] MEDS: PREGABALIN 75 MG CAP PO SCH (09:01)
[2022-01-07] MEDS: ASCORBIC ACID 500 MG TAB PO SCH (09:01)
[2022-01-07] MEDS: ACETAMINOPHEN 325 MG TAB PO PRN (11:08)
[2022-01-07] MEDS: ERTAPENEM SODIUM 1,000 MG in SYRINGE 0 ML IV SCH (12:10)
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
== END 2022-01-07 17:06 | DRG 689 ==
LOC: ED 16:51 → 3W 23:37 → SUATTDRO 23:37 → 3W 01-02 02:05